=== PATIENT | female | born 1990 | race African-American/Black ===

== ENCOUNTER 2016-07-26 22:11 | Emergency (ER) | payer MEDICAID, OTHER ==
--- NOTE | 2016-07-26 22:29 | EDM.PDOC ---
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 Swabs used to remove clots without new bleeding noted. - Related Data Allergies Allergy/AdvReac Type Severity Reaction Status Date / Time No Known Allergies Allergy Verified 07/26/16 22:19 Home Meds: Home Meds . [No Known Home Meds] 06/29/14 [History] Course - Vital Signs Last Recorded V/S: Last Vital Signs Temp 36.6 C 07/27/16 01:20 Pulse 80 07/27/16 01:20 Resp 18 07/27/16 01:20 BP 118/74 07/27/16 01:20 Pulse Ox 100 07/27/16 01:20 - Orders/Labs/Meds Orders: Active Orders 24 hr Category Date Time Status OB 1st Tri Sgl 1st Gest [US] Stat Exams 07/26/16 22:25 Taken Labs: Laboratory Tests 07/26/16 07/26/16 07/26/16 Range/Units 00:04 22:40 22:40 WBC 5.82 (4.0-11.0) K/uL RBC 4.30 (4.30-5.90) M/uL Hgb 12.6 (12.0-16.0) g/dL Hct 37.9 (36.0-46.0) % MCV 88.1 (80.0-98.0) fL MCH 29.3 (27.0-32.0) pg MCHC 33.2 (31.0-37.0) g/dL RDW Std Deviation 41.0 (28.0-62.0) fl RDW Coeff of Imer 13 (11.0-15.0) % Plt Count 262 (150-400) K/uL MPV 10.00 (7.40-12.00) fL Neut % (Auto) 34.6 L (48.0-80.0) % Lymph % (Auto) 55.0 H (16.0-40.0) % [place] % (Auto) 8.2 (0.0-15.0) % Eos % (Auto) 1.9 (0.0-7.0) % Baso % (Auto) 0.3 (0.0-1.5) % Neut # (Auto) 2.0 (1.4-5.7) K/uL Lymph # (Auto) 3.2 H (0.6-2.4) K/uL [place] # (Auto) 0.5 (0.0-0.8) K/uL Eos # (Auto) 0.1 (0.0-0.7) K/uL Baso # (Auto) 0.0 (0.0-0.1) K/uL Nucleated RBC % 0.0 /100WBC Nucleated RBCs # 0 K/uL HCG, Quant 8660.6 mIU/mL Urine Color YELLOW Urine Appearance CLEAR Urine pH 6.0 (5.0-8.0) Ur Specific [place] 1.025 (1.001-1.035) Urine Protein NEGATIVE (NEGATIVE) mg/dL Urine Glucose (UA) NEGATIVE (NEGATIVE) mg/dL Urine Ketones NEGATIVE (NEGATIVE) mg/dL Urine Occult Blood LARGE H (NEGATIVE) Urine Nitrite NEGATIVE (NEGATIVE) Urine Bilirubin NEGATIVE (NEGATIVE) Urine Urobilinogen 0.2 (<2.0) EU/dL Ur Leukocyte Esterase NEGATIVE (NEGATIVE) Urine RBC 1-5 (0-2/HPF) Urine WBC 0-1 (0-5/HPF) Ur Epithelial Cells RARE (NONE-FEW) Urine Bacteria FEW (NEGATIVE) Departure - Departure Disposition: Home, Self-Care 01 Clinical Impression: Threatened Forms: ED Department Discharge - My Orders Last 24 Hours: My Active Orders 07/26/16 22:25 OB 1st Tri Sgl 1st Gest [US] Stat - Assessment/Plan Last 24 Hours: My Active Orders 07/26/16 22:25 OB 1st Tri Sgl 1st Gest [US] Stat <Lawanda Sharma - Last Filed: 07/27/16 01:50> ED HPI GENERAL MEDICAL PROBLEM - History of Present Illness INITIAL COMMENTS - FREE TEXT/NARRATIVE: HISTORY AND PHYSICAL: History of present illness: The patient is a 25 rolled female who is 2 para one with her last child eating or in the naturally February 2015 and presents with an LMP of 05/20/16 and an EGA of 9 weeks 4 days who is complaining of lower abdominal cramping and vaginal bleeding. Per the patient she is not connected with an OB MD and has not had care and she has had a very uneventful . She notes that yesterday she was having some slight spotting is very dark in color and she did not need to use a pad he was only when she was wiping. This evening she started having some cramping and started passing clots and blood and came right to the ER. She did not use a pad since this started prior to admission. She has no flank pain no urinary complaints no fever chills chest pain shortness of breath no nausea no vomiting. She has no STD history or gynecologic history of note. Review of systems: As per history of present illness and below otherwise all systems reviewed and negative. Past medical history: As per history of present illness and as reviewed below otherwise noncontributory. Surgical history: As per history of present illness and as reviewed below otherwise noncontributory. Social history: No reported history of drug or alcohol abuse. Family history: As per history of present illness and as reviewed below otherwise noncontributory. Physical exam: General: Well-developed thin female who is nontoxic and speaking clearly and easily in ED. Vital signs noted by me HEENT: Atraumatic, normocephalic, pupils reactive, negative for conjunctival pallor or scleral icterus, mucous membranes moist, throat clear, neck supple, nontender, trachea midline. Lungs: Clear to auscultation, breath sounds equal bilaterally, chest nontender. Heart: S1S2, regular, negative for clicks, rubs, or JVD. Abdomen: Soft, nondistended, nontender. Hyperactive bowel sounds, no rebound no guarding no tympany on percussion Negative for masses or hepatosplenomegaly. Negative for costovertebral tenderness. Pelvis: Stable nontender. Genitourinary: We see above addendum note. Os was fingertip but no tissue was present and no active bleeding was noted. Rectal: Deferred. Extremities: Atraumatic, negative for cords or calf pain. Neurovascular unremarkable. Neuro: Awake, alert, oriented. Cranial nerves II through XII unremarkable. Cerebellum unremarkable. Motor and sensory unremarkable throughout. Exam nonfocal. Diagnostics: CBC serum quantitative hCG pelvic ultrasound UA Patient is known all positive from February 2015 Therapeutics: Since the initial presentation that the patient has had very little vaginal bleeding. I discussed with her all testing results and followup plan to do quantitative hCG in 2 days and followup in our OB clinic with Dr. Caldera. I've advised her on reasons to return to the ED and on strict pelvic rest until she is followed up. Impression: Threatened versus complete Definitive disposition and diagnosis as appropriate pending reevaluation and review of above. Past Medical History - Past Health History Medical/Surgical History: Denies Medical/Surgical History Social & Family History - Family History Family Medical History: Noncontributory - Tobacco Use Smoking Status *Q: Never Smoker Second Hand Smoke Exposure: No - Caffeine Use Caffeine Use: Reports: None - Alcohol Use Days Per Week of Alcohol Use: 0 - Recreational Drug Use Recreational Drug Use: No ED ROS GENERAL - Review of Systems Review Of Systems: ROS reveals no pertinent complaints other than HPI. ED EXAM, GENERAL - Physical Exam Exam: See Below (See dictation) Course - Orders/Labs/Meds Labs: Laboratory Tests 07/26/16 07/26/16 07/26/16 Range/Units 00:04 22:40 22:40 WBC 5.82 (4.0-11.0) K/uL RBC 4.30 (4.30-5.90) M/uL Hgb 12.6 (12.0-16.0) g/dL Hct 37.9 (36.0-46.0) % MCV 88.1 (80.0-98.0) fL MCH 29.3 (27.0-32.0) pg MCHC 33.2 (31.0-37.0) g/dL RDW Std Deviation 41.0 (28.0-62.0) fl RDW Coeff of Imer 13 (11.0-15.0) % Plt Count 262 (150-400) K/uL MPV 10.00 (7.40-12.00) fL Neut % (Auto) 34.6 L (48.0-80.0) % Lymph % (Auto) 55.0 H (16.0-40.0) % [place] % (Auto) 8.2 (0.0-15.0) % Eos % (Auto) 1.9 (0.0-7.0) % Baso % (Auto) 0.3 (0.0-1.5) % Neut # (Auto) 2.0 (1.4-5.7) K/uL Lymph # (Auto) 3.2 H (0.6-2.4) K/uL [place] # (Auto) 0.5 (0.0-0.8) K/uL Eos # (Auto) 0.1 (0.0-0.7) K/uL Baso # (Auto) 0.0 (0.0-0.1) K/uL Nucleated RBC % 0.0 /100WBC Nucleated RBCs # 0 K/uL HCG, Quant 8660.6 mIU/mL Urine Color YELLOW Urine Appearance CLEAR Urine pH 6.0 (5.0-8.0) Ur Specific [place] 1.025 (1.001-1.035) Urine Protein NEGATIVE (NEGATIVE) mg/dL Urine Glucose (UA) NEGATIVE (NEGATIVE) mg/dL Urine Ketones NEGATIVE (NEGATIVE) mg/dL Urine Occult Blood LARGE H (NEGATIVE) Urine Nitrite NEGATIVE (NEGATIVE) Urine Bilirubin NEGATIVE (NEGATIVE) Urine Urobilinogen 0.2 (<2.0) EU/dL Ur Leukocyte Esterase NEGATIVE (NEGATIVE) Urine RBC 1-5 (0-2/HPF) Urine WBC 0-1 (0-5/HPF) Ur Epithelial Cells RARE (NONE-FEW) Urine Bacteria FEW (NEGATIVE) Departure - Departure Time of Disposition: 01:50 Condition: good
[2016-07-27 02:16] VITALS: BP 120/72
--- NOTE | 2016-07-27 12:27 | US ---
EXAM DATE: 07/26/16 PATIENT'S AGE: 25 Patient: HEIDY KHAN Facility: [place], [place] Site . Site : 1990 Study: US OB Pelvis [id number]/17/2017 12:48:38 AM Ordering Physician: Doctor Ayoub Final Report: INDICATION: r/o ectopic preg bleeding passing clots TECHNIQUE: OB ultrasound. COMPARISON: None FINDINGS: No intrauterine . Heterogeneous thickened endometrium with increased flow on color Doppler analysis. Both ovaries were visualized and normal in sonographic appearance aside from a simple appearing 1.8 cm left ovarian cyst. No significant free fluid. IMPRESSION: 1. No live intrauterine therefore an ectopic cannot be excluded. Recommend followup with serial beta HCG and pelvic ultrasound. 2. Heterogeneous thickened endometrium with hyperemia. Please correlate with beta HCG levels. Given patient`s history this could represent ongoing versus retained products of conception. Dictated by Brennan Dela Cruz MD @ 07/27/2016 12:57:56 AM Dictated by: Brennan Dela Cruz MD @ 07/27/2016 00:58:07 (Electronic Signature) Report Signed by Proxy and Original Signed Document filed in the Medical Record. [facility]
== END 2016-07-27 02:14 | disposition home or self-care (01) ==
LOC: MW.ED 22:11
DX: O20.0 Threatened abortion (principal); Z3A.08 8 weeks gestation of pregnancy
CPT/HCPCS: 36415; 76801; 76801-26; 81001; 84702; 85025; 99283; 99284-25

== ENCOUNTER → 2016-07-28 | Outpatient (CLI) | payer MEDICAID, OTHER | LOC: MW.CHOBGYN 08:15 | PROVIDERS: ATTEND Obstetrics & Gynecology | DX: O20.0 Threatened abortion (principal) | CPT/HCPCS: 36415; 84702 ==

== ENCOUNTER 2016-11-30 17:07 | Emergency (ER) | payer OTHER, SELFPAY ==
[2016-11-30] MEDS ORDERED: Sodium Chloride 0.9% 1,000 ML IV ONE (17:45)
--- NOTE | 2016-11-30 17:50 | EDM.PDOC ---
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 She proceeded to sit down and the symptoms resolved. She is currently 8 weeks which she doctors with Dr. Caldera. States she saw Dr. Caldera a few weeks ago for confirm with a transvaginal ultrasound which was normal. That time he prescribed Zofran for some nausea and vomiting. As for the last couple days she's been taking Zofran for nausea and has had decreased appetite. Currently denies any abdominal pain, vaginal bleeding, or cramping. Really asymptomatic. 3 para 1] Patient states she did have lunch. Review of Systems: As per history of present illness and below otherwise all systems reviewed and negative. Past medical history: As per history of present illness and as reviewed below otherwise noncontributory. Surgical history: As per history of present illness and as reviewed below otherwise noncontributory. Social history: No reported history of drug or alcohol abuse. Family history: As per history of present illness and as reviewed below otherwise noncontributory. Physical exam: Gen.: Nontoxic appearing 26-year-old female. Able to speak in full sentences without shortness of breath. Answers questions appropriately. Alert and oriented HEENT: Atraumatic, normocehpalic, pupils reactive, negative for conjunctival pallor or scleral icterus, mucous membranes moist, throat clear, neck supple, nontender, trachea midline. Lungs: Clear to auscultation, breath sounds equal bilaterally, chest non tender. Heart: S1S2, regular, negative for clicks, rubs, or JVD. Abdomen: Soft, nondistended, nontender. Negative for masses or hepatossplenmegaly. Negative for costovertebral tenderness. Pelvis: Stable nontender. Genitourinary: Deferred. Rectal: Deferred Extremities: Atraumatic, negative for cords or calf pain. Neurovascular unremarkable. Neuro: Awake, alert, oriented. Cranial nerves II through XII unremarkable. Cerebellum unremarkable. Motor and sensory unremarkable throughout. Exam nonfocal. Diagnostics: [CBC, CMP, EKG] Therapeutics: [IV fluids] Impression: [Near syncopal episode/blood sugars low] Plan: [Discharged home Continue to eat regular meals Follow-up with Dr. Caldera] Definitive disposition and diagnosis as appropriate pending reevaluation and review of above. Onset: Today Onset Date: 11/30/16 Onset Time: 17:00 Location: Reports: Generalized Severity: Mild - Related Data Allergies Allergy/AdvReac Type Severity Reaction Status Date / Time No Known Allergies Allergy Verified 07/26/16 22:19 Home Meds: Home Meds . [No Known Home Meds] 06/29/14 [History] Past Medical History - Past Health History Medical/Surgical History: Denies Medical/Surgical History Social & Family History - Family History Family Medical History: Noncontributory - Tobacco Use Smoking Status *Q: Never Smoker Second Hand Smoke Exposure: No - Caffeine Use Caffeine Use: Reports: None - Alcohol Use Days Per Week of Alcohol Use: 0 - Recreational Drug Use Recreational Drug Use: No ED ROS GENERAL - Review of Systems Review Of Systems: ROS reveals no pertinent complaints other than HPI. ED EXAM, GENERAL - Physical Exam Exam: See Below (A dictation) Course - Vital Signs Last Recorded V/S: Last Vital Signs Temp 36.4 C 11/30/16 18:17 Pulse 65 11/30/16 18:17 Resp 14 11/30/16 18:17 BP 107/71 11/30/16 18:17 Pulse Ox 100 11/30/16 18:17 - Orders/Labs/Meds Orders: Active Orders 24 hr Category Date Time Status Blood Glucose Check, Bedside [RC] ONETIME Care 11/30/16 18:21 Active EKG Documentation Completion [RC] STAT Care 11/30/16 17:45 Active Labs: Laboratory Tests 11/30/16 11/30/16 11/30/16 Range/Units 18:07 18:07 18:23 WBC 4.11 (4.0-11.0) K/uL RBC 4.47 (4.30-5.90) M/uL Hgb 13.4 (12.0-16.0) g/dL Hct 38.0 (36.0-46.0) % MCV 85.0 (80.0-98.0) fL MCH 30.0 (27.0-32.0) pg MCHC 35.3 (31.0-37.0) g/dL RDW Std Deviation 38.1 (28.0-62.0) fl RDW Coeff of Imer 12 (11.0-15.0) % Plt Count 236 (150-400) K/uL MPV 9.60 (7.40-12.00) fL Neut % (Auto) 50.9 (48.0-80.0) % Lymph % (Auto) 37.5 (16.0-40.0) % [place] % (Auto) 10.7 (0.0-15.0) % Eos % (Auto) 0.7 (0.0-7.0) % Baso % (Auto) 0.2 (0.0-1.5) % Neut # (Auto) 2.1 (1.4-5.7) K/uL Lymph # (Auto) 1.5 (0.6-2.4) K/uL [place] # (Auto) 0.4 (0.0-0.8) K/uL Eos # (Auto) 0.0 (0.0-0.7) K/uL Baso # (Auto) 0.0 (0.0-0.1) K/uL Nucleated RBC % 0.0 /100WBC Nucleated RBCs # 0 K/uL Sodium 133 L (136-146) mmol/L Potassium 4.6 (3.5-5.1) mmol/L Chloride 103 (98-110) mmol/L Carbon Dioxide 21 (21-31) mmol/L BUN 10 (6.0-23.0) mg/dL Creatinine 0.7 (0.6-1.5) mg/dL Est Cr Clr Drug Dosing 104.44 mL/min Estimated GFR (MDRD) > 60.0 ml/min Glucose 79 (60-110) mg/dL POC Glucose 51 L (60-110) mg/dL Calcium 9.1 (8.8-10.8) mg/dL Total Bilirubin 0.8 (0.1-1.5) mg/dL AST 11 (5-40) IU/L ALT 31 (8-54) IU/L Alkaline Phosphatase 63 (40-150) Total Protein 7.4 (6.0-8.0) g/dL Albumin 4.2 (3.5-5.0) g/dL Globulin 3.2 (2.0-3.5) g/dL Albumin/Globulin Ratio 1.3 (1.3-2.8) Meds: Medications Discontinued Medications Generic Name Dose Route Start Last Admin Trade Name Ana Lilia PRN Reason Stop Dose Admin Sodium Chloride 1,000 mls @ 999 mls/hr 11/30/16 17:45 11/30/16 17:57 Normal Saline IV 11/30/16 18:45 999 mls/hr STAT ONE Administration Departure - Departure Time of Disposition: 18:58 Disposition: Home, Self-Care 01 Condition: Good Clinical Impression: Near syncope - Discharge Information Forms: ED Department Discharge Additional Instructions: The following information is given to patients seen in the emergency department who are being discharged to home. This information is to outline your options for follow-up care. We provide all patients seen in our emergency department with a follow-up referral. The need for follow-up, as well as the timing and circumstances, are variable depending upon the specifics of your emergency department visit. If you don't have a primary care physician on staff, we will provide you with a referral. We always advise you to contact your personal physician following an emergency department visit to inform them of the circumstance of the visit and for follow-up with them and/or the need for any referrals to a consulting specialist. The emergency department will also refer you to a specialist when appropriate. This referral assures that you have the opportunity for followup care with a specialist. All of these measure are taken in an effort to provide you with optimal care, which includes your followup. Under all circumstances we always encourage you to contact your private physician who remains a resource for coordinating your care. When calling for followup care, please make the office aware that this follow-up is from your recent emergency room visit. If for any reason you are refused follow-up, please contact the [facility] emergency department at and asked to speak to the emergency department charge nurse. Follow-up with your primary care provider Heat a snack every 2 hours - My Orders Last 24 Hours: My Active Orders 11/30/16 17:45 EKG Documentation Completion [RC] STAT 11/30/16 18:21 Blood Glucose Check, Bedside [RC] ONETIME - Assessment/Plan Last 24 Hours: My Active Orders 11/30/16 17:45 EKG Documentation Completion [RC] STAT 11/30/16 18:21 Blood Glucose Check, Bedside [RC] ONETIME
[2016-11-30 18:44] LABS: CHLORIDE,CL 103 mmol/L (98-110); SODIUM,NA 133 mmol/L (136-146)
[2016-11-30 19:28] VITALS: BP 107/62
== END 2016-11-30 19:07 | disposition home or self-care (01) ==
LOC: MW.ED 17:07
DX: O99.89 Other specified diseases and conditions complicating pregnancy, childbirth and the puerperium (principal); R55 Syncope and collapse; Z3A.08 8 weeks gestation of pregnancy
CPT/HCPCS: 36415; 80053; 82962; 85025; 93005; 96360; 99284; J7040; 99283

== ENCOUNTER 2017-03-06 20:09 | Emergency (ER) | payer SELFPAY | END 2017-03-06 20:28 | LOC: MW.ED 20:09 | DX: Z53.21 Procedure and treatment not carried out due to patient leaving prior to being seen by health care provider (principal) ==

== ENCOUNTER 2017-03-09 10:07 | Observation (INO) | payer MEDICAID, OTHER ==
[2017-03-09] MEDS ORDERED: Morphine 2 MG/ML Syringe IVPUSH ONE (10:41)
[2017-03-09] MEDS ORDERED: Morphine 2 MG/ML Syringe ONE (10:43)
[2017-03-09] MEDS ORDERED: Lactated Ringers 1,000 ML IV SCH (10:47)
[2017-03-09] MEDS ORDERED: Oxytocin/0.9 % Sodium Chloride 30 UNIT/500 ML BAG ONE (11:07)
[2017-03-09] MEDS ORDERED: Oxytocin/0.9 % Sodium Chloride 30 UNIT/500 ML BAG IV ONE (11:26)
[2017-03-09] MEDS ORDERED: oxyCODONE 5 MG Tab PO PRN (11:36)
[2017-03-09] MEDS ORDERED: Docusate Sodium 100 MG Cap PO PRN (11:36)
[2017-03-09] MEDS ORDERED: Acetaminophen 500 MG Tab PO PRN ×2 (11:36)
[2017-03-09] MEDS ORDERED: Ibuprofen 400 MG Tab PO PRN (11:36)
[2017-03-09] MEDS ORDERED: Lanolin 100% Cream 7 GM Tube TOP PRN (11:36)
[2017-03-09] MEDS ORDERED: Witch Hazel Medicated Pads 40/Jar TOP PRN (11:36)
[2017-03-09] MEDS ORDERED: Benzocaine/Menthol 20%-0.5% Spray 78 GM Cannister TOP PRN (11:36)
[2017-03-09] MEDS ORDERED: Bisacodyl 10 MG Supp RECTAL PRN (11:36)
[2017-03-09] MEDS ORDERED: Ibuprofen 800 MG Tab PO PRN (11:36)
--- NOTE | 2017-03-09 11:46 | PCM.LDHP ---
L&D History of Present Illness - General Date of Service: 03/09/17 Admit Problem/Dx: Patient Status Order with Admit Dx/Problem 03/09/17 10:37 Patient Status [ADT] Routine 03/09/17 11:36 Patient Status [ADT] Routine Admission Diagnosis/Problem Admission Diagnosis/Problem -related examination Source of Information: Patient History Limitations: Reports: No Limitations - History of Present Illness Improves with: Reports: None Worsens with: Reports: None Associated Symptoms: Reports: N - Related Data Allergies/Adverse Reactions: Allergies Allergy/AdvReac Type Severity Reaction Status Date / Time No Known Allergies Allergy Verified 03/06/17 22:02 Home Medications: Home Meds . [No Known Home Meds] 06/29/14 [History] Past Medical History - Past Health History Medical/Surgical History: Denies Medical/Surgical History Social & Family History - Family History Family Medical History: Noncontributory - Tobacco Use Smoking Status *Q: Never Smoker Second Hand Smoke Exposure: No - Caffeine Use Caffeine Use: Reports: None - Alcohol Use Days Per Week of Alcohol Use: 0 - Recreational Drug Use Recreational Drug Use: No H&P Review of Systems - Review of Systems: Review Of Systems: See Below General: Reports: No Symptoms HEENT: Reports: No Symptoms Pulmonary: Reports: No Symptoms Cardiovascular: Reports: No Symptoms Gastrointestinal: Reports: No Symptoms Genitourinary: Reports: No Symptoms Musculoskeletal: Reports: No Symptoms Skin: Reports: No Symptoms Psychiatric: Reports: No Symptoms Neurological: Reports: No Symptoms Hematologic/Lymphatic: Reports: No Symptoms Immunologic: Reports: No Symptoms L&D Exam - Exam Exam: See Below - Vital Signs Weight: 60.328 kg - OB Specific Fundal Height In cm: 22 Contraction Intensity: Moderate to Strong Movement: Not Appreciated Heart Tones: Not [place] Presentation: Vertex - Scott Score Scott Score Cervix Position: Anterior Scott Score Consistency: Soft Scott Score Effacement: >80% Scott Score Dilation: > 5 cm Scott Score 's Station: +1, +2 Scott Score Total: 13 - Exam General: Alert, Oriented HEENT: PERRLA, Conjunctiva Clear, EACs Clear, EOMI, Hearing Intact, Mucosa Moist & [place], Nares Patent, Normal Nasal Septum, Posterior Pharynx Clear, TMs Clear Neck: Supple, Trachea Midline Lungs: Clear to Auscultation, Normal Respiratory Effort Cardiovascular: Regular Rate, Regular Rhythm GI/Abdominal Exam: Normal Bowel Sounds, Soft, Non-Tender, No Organomegaly, No Distention, No Abnormal Bruit, No Mass, Pelvis Stable, Tender Rectal Exam: Normal Exam, Normal Rectal Tone Genitourinary: Normal external exam, Normal bimanual exam, Normal speculum exam Back Exam: Normal Inspection, Full Range of Motion Extremities: Normal Inspection, Normal Range of Motion, Non-Tender, No Pedal Edema, Normal Capillary Refill Skin: Warm, Dry, Intact Neurological: Cranial Nerves Intact, Reflexes Equal Bilateral Psychiatric: Alert, Normal Affect, Normal Mood - Patient Data Lab Results Last 24 hrs: Laboratory Results - last 24 hr 03/09/17 03/09/17 Range/Units 10:26 10:30 WBC 10.60 (4.0-11.0) K/uL RBC 3.04 L (4.30-5.90) M/uL Hgb 9.0 L (12.0-16.0) g/dL Hct 27.3 L (36.0-46.0) % MCV 89.8 (80.0-98.0) fL MCH 29.6 (27.0-32.0) pg MCHC 33.0 (31.0-37.0) g/dL RDW Std Deviation 48.1 (28.0-62.0) fl RDW Coeff of Imer 15 (11.0-15.0) % Plt Count 251 (150-400) K/uL MPV 9.20 (7.40-12.00) fL Add Manual Diff YES Neutrophils % (Manual) 69 (48.0-80.0) % Band Neutrophils % 11 % Lymphocytes % (Manual) 16 (16.0-40.0) % Monocytes % (Manual) 3 (0.0-15.0) % Eosinophils % (Manual) 1 (0.0-7.0) % Nucleated RBC % 0.0 /100WBC Absolute Seg Neuts 7.3 H (1.4-5.7) Band Neutrophils # 1.2 Lymphocytes # (Manual) 1.7 (0.6-2.4) Monocytes # (Manual) 0.3 (0.0-0.8) Eosinophils # (Manual) 0.1 (0.0-0.7) Nucleated RBCs # 0 K/uL Membrane Rupture NEGATIVE Result Diagrams: 03/09/17 10:30 Problem List Initiated/Reviewed/Updated: Yes Orders Last 24hrs: Active Orders 24 hr Category Date Time Status Patient Status [ADT] Routine ADT 03/09/17 11:36 Ordered Non Stress Test [RC] PER UNIT ROUTINE Care 03/09/17 10:37 Active May Shower [RC] ASDIRECTED Care 03/09/17 11:36 Ordered Up ad Kassidy [RC] ASDIRECTED Care 03/09/17 10:37 Active Up ad Kassidy [RC] ASDIRECTED Care 03/09/17 11:36 Ordered Vaginal Exam [RC] Click to Edit Care 03/09/17 10:37 Active Vital Signs [RC] PER UNIT ROUTINE Care 03/09/17 10:37 Active Vital Signs [RC] PER UNIT ROUTINE Care 03/09/17 11:36 Ordered HEMOGLOBIN/HEMATOCRIT,HH [HEME] Timed Lab 03/10/17 05:11 Ordered Acetaminophen [Tylenol Extra Strength] Med 03/09/17 11:36 Ordered 1,000 mg PO Q4H PRN Acetaminophen [Tylenol Extra Strength] Med 03/09/17 11:36 Ordered 500 mg PO Q4H PRN Benzocaine/Menthol [Dermoplast Pain Relief 20%-0.5% Med 03/09/17 11:36 Ordered Makoti] 78 gm TOP ASDIRECTED PRN Bisacodyl [Dulcolax] Med 03/09/17 11:36 Ordered 10 mg RECTAL .ONCE PRN Docusate Sodium [Colace] Med 03/09/17 11:36 Ordered 100 mg PO BID PRN Ibuprofen [Motrin] Med 03/09/17 11:36 Ordered 400 mg PO Q4H PRN Ibuprofen [Motrin] Med 03/09/17 11:36 Ordered 800 mg PO Q6H PRN Lanolin [Lansinoh HPA] Med 03/09/17 11:36 Ordered See Dose Instructions TOP ASDIRECTED PRN Witch Radha [Tucks] Med 03/09/17 11:36 Ordered 1 pad TOP ASDIRECTED PRN oxyCODONE Med 03/09/17 11:36 Ordered 5 mg PO Q2H PRN Assess Lochia [WOMSER] Per Unit Routine Oth 03/09/17 11:36 Ordered Assess Uterine Involution [WOMSER] Per Unit Routine Oth 03/09/17 11:36 Ordered Peripheral IV Discontinue [OM.PC] Routine Oth 03/09/17 11:36 Ordered Resuscitation Status Routine Resus Stat 03/09/17 10:37 Ordered Medication Orders Acetaminophen (Tylenol Extra Strength) 500 mg PO Q4H PRN PRN Reason: Pain Acetaminophen (Tylenol Extra Strength) 1,000 mg PO Q4H PRN PRN Reason: Pain Benzocaine/Menthol (Dermoplast Pain Relief 20%-0.5% Mak[place]) 78 gm TOP ASDIRECTED PRN PRN Reason: Perineal Comfort Measure Bisacodyl (Dulcolax) 10 mg RECTAL .ONCE PRN PRN Reason: Constipation Docusate Sodium (Colace) 100 mg PO BID PRN PRN Reason: Constipation Emollient Ointment (Lansinoh Hpa) 0 gm TOP ASDIRECTED PRN PRN Reason: Sore Nipples Ibuprofen (Motrin) 400 mg PO Q4H PRN PRN Reason: Pain Ibuprofen (Motrin) 800 mg PO Q6H PRN PRN Reason: Pain Oxycodone HCl (Oxycodone) 5 mg PO Q2H PRN PRN Reason: Pain Witch Radha (Tucks) 1 pad TOP ASDIRECTED PRN PRN Reason: comfort care Assessment/Plan Comment:: 26 years old patient primigravida she is 22+3 she was seen yesterday in labor and delivery complaining of vaginal discharge rupture of the membrane ruled out yesterday however the patient is came today complaining of contraction and bleeding and the patient is continued to have contraction and the bleeding would admit this patient to the hospital we would do a test to rule out rupture membrane and we evaluated the patient for possibility of septic start her on antibiotic as soon as possible and we will manage and evaluate accordingly
[2017-03-09] MEDS ORDERED: Ampicillin 2 GM in Sodium Chloride 0.9% 100 ML IV ONE (12:12)
--- NOTE | 2017-03-09 22:06 | OR ---
SURGEON: Edgar Caldera MD DATE OF PROCEDURE: DELIVERY NOTE This is a 26-year-old patient. She is 22-1/2 weeks. She is having bleeding and spotting in the last 2 days with a questionable rupture of the membrane. The patient presented to Labor and Delivery in active labor and she was almost completely dilated. She is having and she had a spontaneous vaginal delivery of 22 weeks fetus, did not survive, and there is no movement and no cardiac activity when the baby is delivered. Then, during the attempt of delivering the placenta, the placenta was retained, so I did a speculum examination and I was able to use a ring forceps with gentle pulling and teasing. The placenta delivered completely without any problem and I sent it for histopathology. Pitocin and antibiotics were started on the patient. We believe the patient had copious amount of bleeding. We will check her H and H and if she require blood transfusion, we will transfuse the patient as needed. Estimated blood loss in this delivery about 500 mL. There was no other complication. PRIMARY SURGEON: SECONDARY SURGEON: HEALTH CARE FACILITIES INSPECTOR: REASON HEALTH CARE FACILITIES INSPECTOR WAS NECESSARY: ROLE OF HEALTH CARE FACILITIES INSPECTOR: JUAN MNOROE /[id number]
--- NOTE | 2017-03-10 08:54 | PCM.PNPP ---
- General Info Date of Service: 03/10/17 Functional Status: Reports: Pain Controlled - Review of Systems General: Reports: No Symptoms HEENT: Reports: No Symptoms Pulmonary: Reports: No Symptoms Cardiovascular: Reports: No Symptoms Gastrointestinal: Reports: No Symptoms Genitourinary: Reports: No Symptoms Musculoskeletal: Reports: No Symptoms Skin: Reports: No Symptoms Neurological: Reports: No Symptoms Psychiatric: Reports: No Symptoms - General Info Date of Service: 03/10/17 - Patient Data Vital Signs - Most Recent: Last Vital Signs Temp 37.1 C 03/10/17 04:00 Pulse 87 03/10/17 04:00 Resp 15 03/10/17 04:00 BP 104/65 03/10/17 04:00 Pulse Ox 100 03/10/17 04:00 Weight - Most Recent: 60.328 kg I&O - Last 24 Hours: Intake & Output 03/09/17 03/10/17 03/10/17 22:59 06:59 14:59 Intake Total 1012 Balance 1012 Lab Results - Last 24 Hours: Laboratory Results - last 24 hr 03/09/17 03/09/17 03/09/17 Range/Units 10:26 10:30 10:50 WBC 10.60 (4.0-11.0) K/uL RBC 3.04 L (4.30-5.90) M/uL Hgb 9.0 L (12.0-16.0) g/dL Hct 27.3 L (36.0-46.0) % MCV 89.8 (80.0-98.0) fL MCH 29.6 (27.0-32.0) pg MCHC 33.0 (31.0-37.0) g/dL RDW Std Deviation 48.1 (28.0-62.0) fl RDW Coeff of Imer 15 (11.0-15.0) % Plt Count 251 (150-400) K/uL MPV 9.20 (7.40-12.00) fL Add Manual Diff YES Neutrophils % (Manual) 69 (48.0-80.0) % Band Neutrophils % 11 % Lymphocytes % (Manual) 16 (16.0-40.0) % Monocytes % (Manual) 3 (0.0-15.0) % Eosinophils % (Manual) 1 (0.0-7.0) % Nucleated RBC % 0.0 /100WBC Absolute Seg Neuts 7.3 H (1.4-5.7) Band Neutrophils # 1.2 Lymphocytes # (Manual) 1.7 (0.6-2.4) Monocytes # (Manual) 0.3 (0.0-0.8) Eosinophils # (Manual) 0.1 (0.0-0.7) Nucleated RBCs # 0 K/uL POC Glucose (60-110) mg/dL Membrane Rupture NEGATIVE Blood Type O POSITIVE Antibody Screen NEGATIVE Crossmatch See Detail 03/09/17 03/09/17 03/10/17 Range/Units 13:40 13:51 05:24 WBC (4.0-11.0) K/uL RBC (4.30-5.90) M/uL Hgb 6.6 L 8.0 L (12.0-16.0) g/dL Hct 20.0 L 23.0 L (36.0-46.0) % MCV (80.0-98.0) fL MCH (27.0-32.0) pg MCHC (31.0-37.0) g/dL RDW Std Deviation (28.0-62.0) fl RDW Coeff of Imer (11.0-15.0) % Plt Count (150-400) K/uL MPV (7.40-12.00) fL Add Manual Diff Neutrophils % (Manual) (48.0-80.0) % Band Neutrophils % % Lymphocytes % (Manual) (16.0-40.0) % Monocytes % (Manual) (0.0-15.0) % Eosinophils % (Manual) (0.0-7.0) % Nucleated RBC % /100WBC Absolute Seg Neuts (1.4-5.7) Band Neutrophils # Lymphocytes # (Manual) (0.6-2.4) Monocytes # (Manual) (0.0-0.8) Eosinophils # (Manual) (0.0-0.7) Nucleated RBCs # K/uL POC Glucose 139 H (60-110) mg/dL Membrane Rupture Blood Type Antibody Screen Crossmatch Med Orders - Current: Current Medications Acetaminophen (Tylenol Extra Strength) 500 mg PO Q4H PRN PRN Reason: Pain Acetaminophen (Tylenol Extra Strength) 1,000 mg PO Q4H PRN PRN Reason: Pain Last Admin: 03/09/17 12:37 Dose: 1,000 mg Benzocaine/Menthol (Dermoplast Pain Relief 20%-0.5% [place]) 78 gm TOP ASDIRECTED PRN PRN Reason: Perineal Comfort Measure Bisacodyl (Dulcolax) 10 mg RECTAL .ONCE PRN PRN Reason: Constipation Docusate Sodium (Colace) 100 mg PO BID PRN PRN Reason: Constipation Emollient Ointment (Lansinoh Hpa) 0 gm TOP ASDIRECTED PRN PRN Reason: Sore Nipples Lactated Ringer's (Ringers, Lactated) 1,000 mls @ 500 mls/hr IV ASDIRECTED ROSMERY Last Admin: 03/09/17 10:40 Dose: 500 mls/hr Ibuprofen (Motrin) 400 mg PO Q4H PRN PRN Reason: Pain Ibuprofen (Motrin) 800 mg PO Q6H PRN PRN Reason: Pain Oxycodone HCl (Oxycodone) 5 mg PO Q2H PRN PRN Reason: Pain Witch Radha (Tucks) 1 pad TOP ASDIRECTED PRN PRN Reason: comfort care Discontinued Medications Oxytocin/Sodium Chloride (Oxytocin 30 Unit/500 Ml-Ns) Confirm Administered Dose 30 unit in 500 mls @ as directed .ROUTE .STK-MED ONE Stop: 03/09/17 11:08 Ampicillin Sodium 2 gm/ Sodium (Chloride) 100 mls @ 200 mls/hr IV ONETIME ONE Stop: 03/09/17 12:41 Last Admin: 03/09/17 12:47 Dose: 200 mls/hr Oxytocin/Sodium Chloride (Oxytocin 30 Unit/500 Ml-Ns) 30 unit in 500 mls @ 500 mls/hr IV ONETIME ONE PRN Reason: 500 MUNITS/MIN Stop: 03/09/17 12:25 Last Admin: 03/09/17 11:26 Dose: 500 munits/min, 500 mls/hr Morphine Sulfate (Morphine) 2 mg IVPUSH ONETIME ONE Stop: 03/09/17 10:42 Last Admin: 03/09/17 10:45 Dose: 2 mg Morphine Sulfate (Morphine) Confirm Administered Dose 2 mg .ROUTE .STK-MED ONE Stop: 03/09/17 10:44 - Infant Interaction Infant Disposition, : Not Applicable Support Person: , Friend - Recovery Exam Fundal Level: Unable to Assess Lochia Amount: Small Lochia Color: Rubra/Red Perineum Description: Intact, Minimal Bruising/Swelling Urinary Elimination: Voided - Exam General: Alert, Oriented HEENT: Pupils Equal Neck: Supple Lungs: Clear to Auscultation, Normal Respiratory Effort Cardiovascular: Regular Rate, Regular Rhythm GI/Abdominal Exam: Normal Bowel Sounds, Soft, Non-Tender, No Organomegaly, No Distention, No Abnormal Bruit, No Mass, Pelvis Stable Extremities: Normal Inspection, Normal Range of Motion, Non-Tender, No Pedal Edema, Normal Capillary Refill Skin: Warm, Dry, Intact Wound/Incisions: Healing Well Neurological: No New Focal Deficit Psy/Mental Status: Alert, Normal Affect, Normal Mood - Problem List Review Problem List Initiated/Reviewed/Updated: Yes - My Orders Last 24 Hours: My Active Orders 03/09/17 10:37 Up ad Kassidy [RC] ASDIRECTED Vital Signs [RC] PER UNIT ROUTINE Resuscitation Status Routine 03/09/17 10:47 Lactated Ringers [Ringers, Lactated] 1,000 ml IV ASDIRECTED 03/09/17 11:36 Patient Status [ADT] Routine May Shower [RC] ASDIRECTED Acetaminophen [Tylenol Extra Strength] 1,000 mg PO Q4H PRN Acetaminophen [Tylenol Extra Strength] 500 mg PO Q4H PRN Benzocaine/Menthol [Dermoplast Pain Relief 20%-0.5% [place]] 78 gm TOP ASDIRECTED PRN Bisacodyl [Dulcolax] 10 mg RECTAL .ONCE PRN Docusate Sodium [Colace] 100 mg PO BID PRN Ibuprofen [Motrin] 400 mg PO Q4H PRN Ibuprofen [Motrin] 800 mg PO Q6H PRN Lanolin [Lansinoh HPA] See Dose Instructions TOP ASDIRECTED PRN Witch Radha [Tucks] 1 pad TOP ASDIRECTED PRN oxyCODONE 5 mg PO Q2H PRN Assess Lochia [WOMSER] Per Unit Routine Assess Uterine Involution [WOMSER] Per Unit Routine Peripheral IV Discontinue [OM.PC] Routine 03/09/17 14:29 Transfuse Red Blood Cells [COMM] Routine 03/09/17 14:30 Verify Patient Consent Obtain [RC] ASDIRECTED 03/09/17 Lunch Regular Diet [DIET] - Plan Plan:: 26 years old patient primigravida she is 22+3 she was seen yesterday in labor and delivery complaining of vaginal discharge rupture of the membrane ruled out yesterday however the patient is came today complaining of contraction and bleeding and the patient is continued to have contraction and the bleeding would admit this patient to the hospital we would do a test to rule out rupture membrane and we evaluated the patient for possibility of septic start her on antibiotic as soon as possible and we will manage and evaluate accordingly
[2017-03-10 09:16] VITALS: BP 107/66
== END 2017-03-10 09:50 | disposition home or self-care (01) ==
LOC: MW.OBCHECK 10:07 → MW.OB 10:11 → MW.OBCHECK 14:28
PROVIDERS: ADMIT Obstetrics & Gynecology; ATTEND Obstetrics & Gynecology
DX: O60.12X0 Preterm labor second trimester with preterm delivery second trimester, not applicable or unspecified (principal); Z3A.22 22 weeks gestation of pregnancy; Z37.1 Single stillbirth
CPT/HCPCS: 36415; 36430; 59409; 82962; 84112; 85014; 85018; 85025; 86850; 86900; 86901; 86920; 86921; 86922; 88305; 96374; 96375; A9270; G0378; J0290; J2270; J2590; J7030; J7120; P9016

== ENCOUNTER 2017-03-23 12:33 | Observation (INO) | payer MEDICAID, OTHER ==
[2017-03-23] MEDS ORDERED: Sodium Chloride 0.9% 10 ML Syringe FLUSH PRN (12:35)
[2017-03-23] MEDS ORDERED: Sodium Chloride 0.9% 2.5 ML Syringe FLUSH PRN (12:35)
--- NOTE | 2017-03-23 13:24 | EDM.PDOC ---
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 Patient has been having heavy vaginal bleeding for the past 4 days. She delivered a stillbirth vaginally 2 weeks ago was scheduled to see Dr. Caldera 2 days. EMS states patient since was severely weak, tachycardic and hypotensive with active vaginal bleeding. Review of systems: As per history of present illness and below otherwise all systems reviewed and negative. Past medical history: As per history of present illness and as reviewed below otherwise noncontributory. Surgical history: As per history of present illness and as reviewed below otherwise noncontributory. Social history: No reported history of drug or alcohol abuse. Family history: As per history of present illness and as reviewed below otherwise noncontributory. Physical exam: General: Well developed, pale, shivering, moaning HEENT: Atraumatic, normocephalic, pupils reactive, negative for conjunctival pallor or scleral icterus, mucous membranes moist, throat clear, neck supple, nontender, trachea midline. Lungs: Clear to auscultation, breath sounds equal bilaterally, chest nontender. Heart: S1S2, regular, negative for clicks, rubs, or JVD. Abdomen: Soft, nondistended, nontender. Negative for masses or hepatosplenomegaly. Negative for costovertebral tenderness. Pelvis: Vaginal fault filled with clots active bleeding around them. Suction was used and ring forceps to remove all the clots os was visualized and there is a golf ball size of fan tissue stuck in the os with bleeding around it. Genitourinary: Deferred. Rectal: Deferred. Extremities: Atraumatic, negative for cords or calf pain. Neurovascular unremarkable. Neuro: Awake, alert, oriented. Cranial nerves II through XII unremarkable. Cerebellum unremarkable. Motor and sensory unremarkable throughout. Exam nonfocal. Diagnostics: []Labs ordered H&H 724. Heart rate 140s blood pressure 100/60 Therapeutics: []Patient given a liter of fluid and 2 units of O-neg blood ordered immediately upon arrival. Impression: []Retained products of misconception with uncontrolled vaginal bleeding Plan: []Dr. Caldera was consulted and is taking in this patient to the OR for D&C. Definitive disposition and diagnosis as appropriate pending reevaluation and review of above. Pelvic Pain Score (Numeric/FACES): 8 - Related Data Allergies Allergy/AdvReac Type Severity Reaction Status Date / Time No Known Allergies Allergy Verified 03/23/17 13:01 Home Meds: Home Meds . 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 Social & Family History - Family History Family Medical History: Noncontributory Cardiac: Reports: Hypertension Endocrine/Metabolic: Reports: Diabetes, type II - Tobacco Use Smoking Status *Q: Unknown Ever Smoked Second Hand Smoke Exposure: No - Caffeine Use Caffeine Use: Reports: Other - Alcohol Use Days Per Week of Alcohol Use: 0 - Recreational Drug Use Recreational Drug Use: No ED ROS GENERAL - Review of Systems Review Of Systems: See Below (See history of present illness) ED EXAM - Physical Exam Exam: See Below (See history of present illness) Course - Vital Signs Last Recorded V/S: Last Vital Signs Temp 99.0 F 03/23/17 12:40 Pulse 112 H 03/23/17 12:40 Resp 20 03/23/17 12:40 BP 117/60 03/23/17 12:40 Pulse Ox 100 03/23/17 12:40 - Orders/Labs/Meds Orders: Active Orders 24 hr Category Date Time Status Notify Provider Consults [RC] ASDIRECTED Care 03/23/17 13:48 Ordered Consult to Physician [CONS] Stat Cons 03/23/17 13:46 Ordered RED BLOOD CELLS LP [BBK] Stat Lab 03/23/17 12:49 Results Sodium Chloride 0.9% [Saline Flush] Med 03/23/17 12:35 Active 10 ml FLUSH ASDIRECTED PRN Sodium Chloride 0.9% [Saline Flush] Med 03/23/17 12:35 Active 2.5 ml FLUSH ASDIRECTED PRN cefTRIAXone [Rocephin in Dextrose,Iso-Osm 1 GM/50 ML] 1 Med 03/23/17 13:34 Active gm Premix Bag 1 bag IV ONETIME Saline Lock Insert [OM.PC] Stat Oth 03/23/17 12:35 Ordered Transfuse Red Blood Cells [COMM] Stat Oth 03/23/17 13:05 Ordered Medication Orders Ceftriaxone Sodium/Dextrose 1 (gm/ Premix) 50 mls @ 100 mls/hr IV ONETIME ONE Stop: 03/23/17 14:03 Sodium Chloride (Saline Flush) 10 ml FLUSH ASDIRECTED PRN PRN Reason: Keep Vein Open Last Admin: 03/23/17 13:34 Dose: 10 ml Sodium Chloride (Saline Flush) 2.5 ml FLUSH ASDIRECTED PRN PRN Reason: Keep Vein Open Last Admin: 03/23/17 13:34 Dose: 2.5 ml Labs: Laboratory Tests 03/23/17 03/23/17 03/23/17 Range/Units 12:49 12:49 12:49 WBC 10.32 (4.0-11.0) K/uL RBC 2.56 L (4.30-5.90) M/uL Hgb 7.7 L (12.0-16.0) g/dL Hct 24.0 L (36.0-46.0) % MCV 93.8 (80.0-98.0) fL MCH 30.1 (27.0-32.0) pg MCHC 32.1 (31.0-37.0) g/dL RDW Std Deviation 48.7 (28.0-62.0) fl RDW Coeff of Imer 14 (11.0-15.0) % Plt Count 443 H (150-400) K/uL MPV 9.30 (7.40-12.00) fL Neut % (Auto) 73.5 (48.0-80.0) % Lymph % (Auto) 21.3 (16.0-40.0) % [place] % (Auto) 4.9 (0.0-15.0) % Eos % (Auto) 0.0 (0.0-7.0) % Baso % (Auto) 0.3 (0.0-1.5) % Neut # (Auto) 7.6 H (1.4-5.7) K/uL Lymph # (Auto) 2.2 (0.6-2.4) K/uL [place] # (Auto) 0.5 (0.0-0.8) K/uL Eos # (Auto) 0.0 (0.0-0.7) K/uL Baso # (Auto) 0.0 (0.0-0.1) K/uL Nucleated RBC % 0.0 /100WBC Nucleated RBCs # 0 K/uL Sodium 136 (136-146) mmol/L Potassium 3.7 (3.5-5.1) mmol/L Chloride 104 (98-110) mmol/L Carbon Dioxide 21 (21-31) mmol/L BUN 8 (6.0-23.0) mg/dL Creatinine 0.7 (0.6-1.5) mg/dL Est Cr Clr Drug Dosing 102.00 mL/min Estimated GFR (MDRD) > 60.0 ml/min Glucose 116 H (60-110) mg/dL Calcium 8.4 L (8.8-10.8) mg/dL Total Bilirubin 0.6 (0.1-1.5) mg/dL AST 7 (5-40) IU/L ALT 15 (8-54) IU/L Alkaline Phosphatase 81 (40-150) Total Protein 6.7 (6.0-8.0) g/dL Albumin 3.2 L (3.5-5.0) g/dL Globulin 3.5 (2.0-3.5) g/dL Albumin/Globulin Ratio 0.9 L (1.3-2.8) HCG, Quant 691.5 mIU/mL Blood Type O POSITIVE Antibody Screen NEGATIVE Crossmatch 03/23/17 Range/Units 12:49 WBC (4.0-11.0) K/uL RBC (4.30-5.90) M/uL Hgb (12.0-16.0) g/dL Hct (36.0-46.0) % MCV (80.0-98.0) fL MCH (27.0-32.0) pg MCHC (31.0-37.0) g/dL RDW Std Deviation (28.0-62.0) fl RDW Coeff of Imer (11.0-15.0) % Plt Count (150-400) K/uL MPV (7.40-12.00) fL Neut % (Auto) (48.0-80.0) % Lymph % (Auto) (16.0-40.0) % [place] % (Auto) (0.0-15.0) % Eos % (Auto) (0.0-7.0) % Baso % (Auto) (0.0-1.5) % Neut # (Auto) (1.4-5.7) K/uL Lymph # (Auto) (0.6-2.4) K/uL [place] # (Auto) (0.0-0.8) K/uL Eos # (Auto) (0.0-0.7) K/uL Baso # (Auto) (0.0-0.1) K/uL Nucleated RBC % /100WBC Nucleated RBCs # K/uL Sodium (136-146) mmol/L Potassium (3.5-5.1) mmol/L Chloride (98-110) mmol/L Carbon Dioxide (21-31) mmol/L BUN (6.0-23.0) mg/dL Creatinine (0.6-1.5) mg/dL Est Cr Clr Drug Dosing mL/min Estimated GFR (MDRD) ml/min Glucose (60-110) mg/dL Calcium (8.8-10.8) mg/dL Total Bilirubin (0.1-1.5) mg/dL AST (5-40) IU/L ALT (8-54) IU/L Alkaline Phosphatase (40-150) Total Protein (6.0-8.0) g/dL Albumin (3.5-5.0) g/dL Globulin (2.0-3.5) g/dL Albumin/Globulin Ratio (1.3-2.8) HCG, Quant mIU/mL Blood Type Antibody Screen Crossmatch See Detail Meds: Medications Generic Name Dose Route Start Last Admin Trade Name Freq PRN Reason Stop Dose Admin Ceftriaxone Sodium/Dextrose 1 50 mls @ 100 mls/hr 03/23/17 13:34 gm/ Premix IV 03/23/17 14:03 ONETIME ONE Sodium Chloride 10 ml 03/23/17 12:35 03/23/17 13:34 Saline Flush FLUSH 10 ml ASDIRECTED PRN Administration Keep Vein Open Sodium Chloride 2.5 ml 03/23/17 12:35 03/23/17 13:34 Saline Flush FLUSH 2.5 ml ASDIRECTED PRN Administration Keep Vein Open Discontinued Medications Generic Name Dose Route Start Last Admin Trade Name Danieq PRN Reason Stop Dose Admin Diphenhydramine HCl Confirm 03/23/17 13:47 Benadryl Administered 03/23/17 13:48 Dose 50 mg .ROUTE .STK-MED ONE Fentanyl Confirm 03/23/17 12:47 03/23/17 13:40 Sublimaze Administered 03/23/17 12:48 Not Given Dose 100 mcg .ROUTE .STK-MED ONE Fentanyl 100 mcg 03/23/17 13:36 03/23/17 13:40 Sublimaze IVPUSH 03/23/17 13:37 100 mcg ONETIME ONE Administration Ketamine HCl Confirm 03/23/17 13:45 Ketalar Administered 03/23/17 13:46 Dose 500 mg .ROUTE .STK-MED ONE Lidocaine Confirm 03/23/17 13:47 Xylocaine-Mpf 2% Administered 03/23/17 13:48 Dose 5 ml .ROUTE .STK-MED ONE Ondansetron HCl Confirm 03/23/17 13:47 Zofran Administered 03/23/17 13:48 Dose 4 mg .ROUTE .STK-MED ONE Propofol Confirm 03/23/17 13:45 Diprivan 20 Ml Administered 03/23/17 13:46 Dose 200 mg .ROUTE .STK-MED ONE Succinylcholine Chloride Confirm 03/23/17 13:47 Succinylcholine In Ns Pf Administered 03/23/17 13:48 Dose 200 mg .ROUTE .STK-MED ONE Departure - Departure Time of Disposition: 13:58 Disposition: Home, Self-Care 01 Condition: Good Clinical Impression: Retained products of conception with hemorrhage - Discharge Information - My Orders Last 24 Hours: My Active Orders 03/23/17 12:35 Sodium Chloride 0.9% [Saline Flush] 10 ml FLUSH ASDIRECTED PRN Sodium Chloride 0.9% [Saline Flush] 2.5 ml FLUSH ASDIRECTED PRN Saline Lock Insert [OM.PC] Stat 03/23/17 12:49 RED BLOOD CELLS LP [BBK] Stat 03/23/17 13:05 Transfuse Red Blood Cells [COMM] Stat 03/23/17 13:34 cefTRIAXone [Rocephin in Dextrose,Iso-Osm 1 GM/50 ML] 1 gm Premix Bag 1 bag IV ONETIME 03/23/17 13:46 Consult to Physician [CONS] Stat 03/23/17 13:48 Notify Provider Consults [RC] ASDIRECTED - Assessment/Plan Last 24 Hours: My Active Orders 03/23/17 12:35 Sodium Chloride 0.9% [Saline Flush] 10 ml FLUSH ASDIRECTED PRN Sodium Chloride 0.9% [Saline Flush] 2.5 ml FLUSH ASDIRECTED PRN Saline Lock Insert [OM.PC] Stat 03/23/17 12:49 RED BLOOD CELLS LP [BBK] Stat 03/23/17 13:05 Transfuse Red Blood Cells [COMM] Stat 03/23/17 13:34 cefTRIAXone [Rocephin in Dextrose,Iso-Osm 1 GM/50 ML] 1 gm Premix Bag 1 bag IV ONETIME 03/23/17 13:46 Consult to Physician [CONS] Stat 03/23/17 13:48 Notify Provider Consults [RC] ASDIRECTED
[2017-03-23 13:27] LABS: CHLORIDE,CL 104 mmol/L (98-110); SODIUM,NA 136 mmol/L (136-146)
[2017-03-23] MEDS: fentaNYL 100 MCG/2 ML SDV ONE ×2 (13:34→13:40)
[2017-03-23] MEDS ORDERED: cefTRIAXone 1 GM in Premix Bag 1 BAG IV ONE (13:34)
[2017-03-23] MEDS ORDERED: fentaNYL 100 MCG/2 ML SDV IVPUSH ONE (13:36)
[2017-03-23] MEDS ORDERED: Ketamine 500 mg/10 ML MDV ONE (13:45)
[2017-03-23] MEDS ORDERED: Propofol 200 MG/20 ML SDV ONE (13:45)
[2017-03-23] MEDS ORDERED: diphenhydrAMINE 50 MG/ML SDV ONE (13:47)
[2017-03-23] MEDS ORDERED: Succinylcholine/Normal Saline 200 MG/10 ML Syringe ONE ×2 (13:47→14:20)
[2017-03-23] MEDS ORDERED: Ondansetron 4 MG/2 ML SDV ONE (13:47)
[2017-03-23] MEDS ORDERED: Lidocaine 2% 5 ML SDV ONE (13:47)
[2017-03-23] MEDS ORDERED: Methylergonovine 0.2 MG/1 ML Amp ONE (14:18)
[2017-03-23] MEDS ORDERED: Etomidate 2 MG/ML 20 ML SDV IVPUSH ONE (14:20)
[2017-03-23] MEDS ORDERED: Phenylephrine/Normal Saline 100 MCG/ML 10 ML Syringe ONE (14:21)
--- NOTE | 2017-03-23 14:48 | PCM.PREANE ---
Preanesthetic Assessment - Procedure Proposed Procedure: d/c for vaginal bleeding - Anesthesia/Transfusion/Family Hx Anesthesia History: No Prior Anesthesia Family History of Anesthesia Reaction: No Transfusion History: Prior Transfusion Without Reaction (pt currently recieving 2 u prbc) - Review of Systems General: No Symptoms Pulmonary: No Symptoms Cardiovascular: No Symptoms (pt currently tachycardic at 130) Gastrointestinal: Abdominal Pain Neurological: No Symptoms Other: Reports: None (pt s/p spontaneous 22 weeks. this occured 2 weeks ago) - Physical Assessment NPO Status Date: 03/22/17 O2 Sat by Pulse Oximetry: 100 Respiratory Rate: 20 Vital Signs: Last Vital Signs Temp 37.2 C 03/23/17 12:40 Pulse 112 H 03/23/17 12:40 Resp 20 03/23/17 12:40 BP 117/60 03/23/17 12:40 Pulse Ox 100 03/23/17 12:40 Height: 1.7 m Weight: 53.524 kg ASA Class: 2E Mental Status: Alert & Oriented x3 Airway Class: Mallampati = 2 Dentition: Reports: Normal Dentition Thyro-Mental Finger Breadths: 3 Mouth Opening Finger Breadths: 2 ROM/Head Extension: Full Lungs: Clear to Auscultation, Normal Respiratory Effort Cardiovascular: Regular Rate, Regular Rhythm, Tachycardia - Lab Values: Laboratory Last Values WBC 10.32 K/uL (4.0-11.0) 03/23/17 12:49 RBC 2.56 M/uL (4.30-5.90) L 03/23/17 12:49 Hgb 7.7 g/dL (12.0-16.0) L 03/23/17 12:49 Hct 24.0 % (36.0-46.0) L 03/23/17 12:49 MCV 93.8 fL (80.0-98.0) 03/23/17 12:49 MCH 30.1 pg (27.0-32.0) 03/23/17 12:49 MCHC 32.1 g/dL (31.0-37.0) 03/23/17 12:49 RDW Std Deviation 48.7 fl (28.0-62.0) 03/23/17 12:49 RDW Coeff of Imer 14 % (11.0-15.0) 03/23/17 12:49 Plt Count 443 K/uL (150-400) H 03/23/17 12:49 MPV 9.30 fL (7.40-12.00) 03/23/17 12:49 Neut % (Auto) 73.5 % (48.0-80.0) 03/23/17 12:49 Lymph % (Auto) 21.3 % (16.0-40.0) 03/23/17 12:49 [place] % (Auto) 4.9 % (0.0-15.0) 03/23/17 12:49 Eos % (Auto) 0.0 % (0.0-7.0) 03/23/17 12:49 Baso % (Auto) 0.3 % (0.0-1.5) 03/23/17 12:49 Neut # (Auto) 7.6 K/uL (1.4-5.7) H 03/23/17 12:49 Lymph # (Auto) 2.2 K/uL (0.6-2.4) 03/23/17 12:49 [place] # (Auto) 0.5 K/uL (0.0-0.8) 03/23/17 12:49 Eos # (Auto) 0.0 K/uL (0.0-0.7) 03/23/17 12:49 Baso # (Auto) 0.0 K/uL (0.0-0.1) 03/23/17 12:49 Nucleated RBC % 0.0 /100WBC 03/23/17 12:49 Nucleated RBCs # 0 K/uL 03/23/17 12:49 Sodium 136 mmol/L (136-146) 03/23/17 12:49 Potassium 3.7 mmol/L (3.5-5.1) 03/23/17 12:49 Chloride 104 mmol/L (98-110) 03/23/17 12:49 Carbon Dioxide 21 mmol/L (21-31) 03/23/17 12:49 BUN 8 mg/dL (6.0-23.0) 03/23/17 12:49 Creatinine 0.7 mg/dL (0.6-1.5) 03/23/17 12:49 Est Cr Clr Drug Dosing 102.00 mL/min 03/23/17 12:49 Estimated GFR (MDRD) > 60.0 ml/min 03/23/17 12:49 Glucose 116 mg/dL (60-110) H 03/23/17 12:49 Calcium 8.4 mg/dL (8.8-10.8) L 03/23/17 12:49 Total Bilirubin 0.6 mg/dL (0.1-1.5) 03/23/17 12:49 AST 7 IU/L (5-40) 03/23/17 12:49 ALT 15 IU/L (8-54) 03/23/17 12:49 Alkaline Phosphatase 81 (40-150) 03/23/17 12:49 Total Protein 6.7 g/dL (6.0-8.0) 03/23/17 12:49 Albumin 3.2 g/dL (3.5-5.0) L 03/23/17 12:49 Globulin 3.5 g/dL (2.0-3.5) 03/23/17 12:49 Albumin/Globulin Ratio 0.9 (1.3-2.8) L 03/23/17 12:49 HCG, Quant 691.5 mIU/mL 03/23/17 12:49 Blood Type O POSITIVE 03/23/17 12:49 Antibody Screen NEGATIVE 03/23/17 12:49 Crossmatch See Detail 03/23/17 12:49 - Allergies Allergies/Adverse Reactions: Allergies Allergy/AdvReac Type Severity Reaction Status Date / Time No Known Allergies Allergy Verified 03/23/17 13:01 - Blood Blood Available: Yes Product(s) Available: PRBC - Acknowledgements Anesthesia Type Planned: General Anesthesia Pt an Appropriate Candidate for the Planned Anesthesia: Yes Alternatives and Risks of Anesthesia Discussed w Pt/Guardian: Yes Pt/Guardian Understands and Agrees with Anesthesia Plan: Yes PreAnesthesia Questionnaire - Past Health History Medical/Surgical History: Denies 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 [No Known Home Meds] 06/29/14 [History] - CURRENT (IN HOUSE) MEDS Current Meds: Current Medications Sodium Chloride (Saline Flush) 10 ml FLUSH ASDIRECTED PRN PRN Reason: Keep Vein Open Last Admin: 03/23/17 13:34 Dose: 10 ml Sodium Chloride (Saline Flush) 2.5 ml FLUSH ASDIRECTED PRN PRN Reason: Keep Vein Open Last Admin: 03/23/17 13:34 Dose: 2.5 ml Discontinued Medications Diphenhydramine HCl (Benadryl) Confirm Administered Dose 50 mg .ROUTE .STK-MED ONE Stop: 03/23/17 13:48 Etomidate (Amidate) Confirm Administered Dose 40 mg IVPUSH .STK-MED ONE Stop: 03/23/17 14:21 Fentanyl (Sublimaze) Confirm Administered Dose 100 mcg .ROUTE .STK-MED ONE Stop: 03/23/17 12:48 Last Admin: 03/23/17 13:40 Dose: Not Given Fentanyl (Sublimaze) 100 mcg IVPUSH ONETIME ONE Stop: 03/23/17 13:37 Last Admin: 03/23/17 13:40 Dose: 100 mcg Ceftriaxone Sodium/Dextrose 1 (gm/ Premix) 50 mls @ 100 mls/hr IV ONETIME ONE Stop: 03/23/17 14:03 Ketamine HCl (Ketalar) Confirm Administered Dose 500 mg .ROUTE .STK-MED ONE Stop: 03/23/17 13:46 Lidocaine (Xylocaine-Mpf 2%) Confirm Administered Dose 5 ml .ROUTE .STK-MED ONE Stop: 03/23/17 13:48 Methylergonovine Maleate (Methergine) Confirm Administered Dose 0.2 mg .ROUTE .STK-MED ONE Stop: 03/23/17 14:19 Ondansetron HCl (Zofran) Confirm Administered Dose 4 mg .ROUTE .STK-MED ONE Stop: 03/23/17 13:48 Phenylephrine HCl (Phenylephrine In Ns 100 Mcg/Ml) Confirm Administered Dose 1 mg .ROUTE .STK-MED ONE Stop: 03/23/17 14:22 Propofol (Diprivan 20 Ml) Confirm Administered Dose 200 mg .ROUTE .STK-MED ONE Stop: 03/23/17 13:46 Succinylcholine Chloride (Succinylcholine In Ns Pf) Confirm Administered Dose 200 mg .ROUTE .STK-MED ONE Stop: 03/23/17 13:48 Succinylcholine Chloride (Succinylcholine In Ns Pf) Confirm Administered Dose 200 mg .ROUTE .STK-MED ONE Stop: 03/23/17 14:21
[2017-03-23] MEDS ORDERED: fentaNYL 100 MCG/2 ML SDV IVPUSH PRN (14:49)
--- NOTE | 2017-03-23 15:05 | PCM.POSTAN ---
POST ANESTHESIA ASSESSMENT - MENTAL STATUS Mental Status: Oriented, Somnolent - VITAL SIGNS Pulse Rate: 125 SaO2: 100 Resp Rate: 15 Blood Pressure: 117/69 Temperature: 38.1 C - RESPIRATORY Respiratory Status: Respiratory Rate WNL, Airway Patent, O2 Saturation Stable - CARDIOVASCULAR CV Status: Elevated Pulse Rate (hr lower than preop but remains tachycardic) - GASTROINTESTINAL GI Status: No Symptoms - PAIN Pain Score: 0 - POST OP HYDRATION Hydration Status: Adequate & Stable
[2017-03-23] MEDS ORDERED: Promethazine 25 MG/ML SDV IM PRN (15:48)
[2017-03-23] MEDS ORDERED: Morphine 4 MG/ML Syringe IVPUSH PRN (15:48)
[2017-03-23] MEDS ORDERED: Morphine 2 MG/ML Syringe IVPUSH PRN (15:48)
[2017-03-23] MEDS ORDERED: Acetaminophen/oxyCODONE 325-5 MG Tab PO PRN ×2 (15:48)
[2017-03-23] MEDS ORDERED: Ketorolac 30 MG/ML SDV IVPUSH ONE (15:48)
[2017-03-23] MEDS ORDERED: Ondansetron 4 MG/2 ML SDV IVPUSH PRN (15:48)
--- NOTE | 2017-03-23 15:55 | PCM.OPNOTE ---
- General Post-Op/Procedure Note Date of Surgery/Procedure: 03/23/17 Operative Procedure(s): D&E, manual removal of POC and endometrial scraping Pre Op Diagnosis: Bleeding Post-Op Diagnosis: Same Anesthesia Technique: General ET Tube Primary Surgeon: Edgar Caldera EBL in mLs: 800 Complications: None Condition: Poor
[2017-03-23] MEDS ORDERED: Sodium Chloride 0.9% 1,000 ML IV ONE (17:04)
[2017-03-23] MEDS: Lactated Ringers 1,000 ML IV SCH ×2 (17:06→22:17)
--- NOTE | 2017-03-23 19:52 | PCM48HPAN ---
Post Anesthesia Note - EVALUATION WITHIN 48HRS OF ANESTHETIC Vital Signs in Normal Range: Yes Patient Participated in Evaluation: Yes Respiratory Function Stable: Yes Airway Patent: Yes Cardiovascular Function Stable: Yes Hydration Status Stable: Yes Pain Control Satisfactory: Yes Nausea and Vomiting Control Satisfactory: Yes Mental Status Recovered: Yes
[2017-03-23] MEDS ORDERED: Ketorolac 30 MG/ML SDV IVPUSH PRN (21:00)
--- NOTE | 2017-03-23 22:30 | OR ---
SURGEON: Edgar Caldera MD DATE OF PROCEDURE: PREOPERATIVE DIAGNOSES: Vaginal bleeding, retained products of conception. POSTOPERATIVE DIAGNOSIS: Vaginal bleeding, retained products of conception. OPERATION PERFORMED: Examination under anesthesia, removal of retained products of conception, suction and curettage, and regular curette. 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 ANESTHESIA: Dr. Vivas and nurse public health internship. ESTIMATED BLOOD LOSS: Including the blood clot in the vagina, it is about 700 mL. COMPLICATIONS: None. FINDING: Products of conception. INDICATION FOR SURGERY: Ten days ago, she had spontaneous vaginal delivery of 22 stillborn fetus. The patient at the time had a placenta removed manually and it seems to be that the bleeding is stopped after removing the placenta and there was no evidence for retained products of conception; however, the patient today started bleeding and she was rushed to the emergency room by ambulance and she was resuscitated and given blood in the emergency room. I evaluated her there and find that there are products of conception protruding through the cervical canal. It was difficult to examine, to evaluate the patient in the ER, so a decision was made to do examination under anesthesia and possible D and E versus D and C. PROCEDURE IN DETAIL: The patient was brought to the OR, properly identified. After adequate level of anesthesia, the patient was prepped and draped in sterile fashion as usual. The weighted speculum was placed in vagina. Blood clot was removed from the vagina and ring forceps was applied to the anterior lips of the cervix which was already dilated and then I used another ring to remove the products of the conception which was protruded through the cervical os and then multiple pieces of products of conception was removed. Then, suction and curettage were done to remove the rest of the products of conception and using a large curette, gentle curetting of the endometrial cavity was done. It was reasonably felt that it was empty and there was no more products of conception and methargen was given to the patient and the bleeding very well slowed, almost stopped out. I went ahead and put a vaginal pack, part of it was in the lower part of the uterus and part in the vagina to put pressure on the bleeding spot and the procedure ended. Instrument and sponge count was correct. The patient tolerated the procedure well, went to recovery room in stable general condition. JUAN / MABEL /[id number]
[2017-03-24 05:46] LABS: CHLORIDE,CL 109 mmol/L (98-110); SODIUM,NA 138 mmol/L (136-146)
[2017-03-24] MEDS: Lactated Ringers 1,000 ML IV SCH (06:36)
--- NOTE | 2017-03-24 08:54 | PCM.SURGPN ---
- General Info POD#: 1 Functional Status: Reports: Pain Controlled - Review of Systems General: Reports: No Symptoms HEENT: Reports: No Symptoms Pulmonary: Reports: No Symptoms Cardiovascular: Reports: No Symptoms Gastrointestinal: Reports: No Symptoms Genitourinary: Reports: No Symptoms Musculoskeletal: Reports: No Symptoms Skin: Reports: No Symptoms Neurological: Reports: No Symptoms Psychiatric: Reports: No Symptoms - Patient Data Vitals - Most Recent: Last Vital Signs Temp 36.5 C 03/24/17 04:00 Pulse 88 03/24/17 04:00 Resp 14 03/24/17 04:00 BP 102/66 03/24/17 04:00 Pulse Ox 100 03/24/17 04:00 Weight - Most Recent: 53.524 kg I&O - Last 24 Hours: Intake & Output 03/23/17 03/24/17 03/24/17 22:59 06:59 14:59 Intake Total 2200 1500 Output Total 1250 Balance 2200 250 Lab Results Last 24 Hrs: Laboratory Results - last 24 hr 03/23/17 03/23/17 03/23/17 Range/Units 12:49 12:49 12:49 WBC 10.32 (4.0-11.0) K/uL RBC 2.56 L (4.30-5.90) M/uL Hgb 7.7 L (12.0-16.0) g/dL Hct 24.0 L (36.0-46.0) % MCV 93.8 (80.0-98.0) fL MCH 30.1 (27.0-32.0) pg MCHC 32.1 (31.0-37.0) g/dL RDW Std Deviation 48.7 (28.0-62.0) fl RDW Coeff of Imer 14 (11.0-15.0) % Plt Count 443 H (150-400) K/uL MPV 9.30 (7.40-12.00) fL Neut % (Auto) 73.5 (48.0-80.0) % Lymph % (Auto) 21.3 (16.0-40.0) % [place] % (Auto) 4.9 (0.0-15.0) % Eos % (Auto) 0.0 (0.0-7.0) % Baso % (Auto) 0.3 (0.0-1.5) % Neut # (Auto) 7.6 H (1.4-5.7) K/uL Lymph # (Auto) 2.2 (0.6-2.4) K/uL [place] # (Auto) 0.5 (0.0-0.8) K/uL Eos # (Auto) 0.0 (0.0-0.7) K/uL Baso # (Auto) 0.0 (0.0-0.1) K/uL Nucleated RBC % 0.0 /100WBC Nucleated RBCs # 0 K/uL Sodium 136 (136-146) mmol/L Potassium 3.7 (3.5-5.1) mmol/L Chloride 104 (98-110) mmol/L Carbon Dioxide 21 (21-31) mmol/L BUN 8 (6.0-23.0) mg/dL Creatinine 0.7 (0.6-1.5) mg/dL Est Cr Clr Drug Dosing 102.00 mL/min Estimated GFR (MDRD) > 60.0 ml/min Glucose 116 H (60-110) mg/dL Calcium 8.4 L (8.8-10.8) mg/dL Total Bilirubin 0.6 (0.1-1.5) mg/dL AST 7 (5-40) IU/L ALT 15 (8-54) IU/L Alkaline Phosphatase 81 (40-150) Total Protein 6.7 (6.0-8.0) g/dL Albumin 3.2 L (3.5-5.0) g/dL Globulin 3.5 (2.0-3.5) g/dL Albumin/Globulin Ratio 0.9 L (1.3-2.8) HCG, Quant 691.5 mIU/mL Blood Type O POSITIVE Antibody Screen NEGATIVE Crossmatch 03/23/17 03/23/17 03/24/17 Range/Units 12:49 20:18 04:54 WBC 7.86 4.75 (4.0-11.0) K/uL RBC 3.26 L 2.64 L (4.30-5.90) M/uL Hgb 9.6 L 7.5 L (12.0-16.0) g/dL Hct 28.0 L 22.9 L (36.0-46.0) % MCV 85.9 86.7 (80.0-98.0) fL MCH 29.4 28.4 (27.0-32.0) pg MCHC 34.3 32.8 (31.0-37.0) g/dL RDW Std Deviation 48.5 50.3 (28.0-62.0) fl RDW Coeff of Imer 16 H 16 H (11.0-15.0) % Plt Count 236 188 (150-400) K/uL MPV 9.10 9.70 (7.40-12.00) fL Neut % (Auto) 79.7 58.2 (48.0-80.0) % Lymph % (Auto) 14.9 L 30.5 (16.0-40.0) % [place] % (Auto) 5.1 10.5 (0.0-15.0) % Eos % (Auto) 0.0 0.4 (0.0-7.0) % Baso % (Auto) 0.3 0.4 (0.0-1.5) % Neut # (Auto) 6.3 H 2.8 (1.4-5.7) K/uL Lymph # (Auto) 1.2 1.5 (0.6-2.4) K/uL [place] # (Auto) 0.4 0.5 (0.0-0.8) K/uL Eos # (Auto) 0.0 0.0 (0.0-0.7) K/uL Baso # (Auto) 0.0 0.0 (0.0-0.1) K/uL Nucleated RBC % 0.0 0.0 /100WBC Nucleated RBCs # 0 0 K/uL Sodium (136-146) mmol/L Potassium (3.5-5.1) mmol/L Chloride (98-110) mmol/L Carbon Dioxide (21-31) mmol/L BUN (6.0-23.0) mg/dL Creatinine (0.6-1.5) mg/dL Est Cr Clr Drug Dosing mL/min Estimated GFR (MDRD) ml/min Glucose (60-110) mg/dL Calcium (8.8-10.8) mg/dL Total Bilirubin (0.1-1.5) mg/dL AST (5-40) IU/L ALT (8-54) IU/L Alkaline Phosphatase (40-150) Total Protein (6.0-8.0) g/dL Albumin (3.5-5.0) g/dL Globulin (2.0-3.5) g/dL Albumin/Globulin Ratio (1.3-2.8) HCG, Quant mIU/mL Blood Type Antibody Screen Crossmatch See Detail 03/24/17 Range/Units 04:54 WBC (4.0-11.0) K/uL RBC (4.30-5.90) M/uL Hgb (12.0-16.0) g/dL Hct (36.0-46.0) % MCV (80.0-98.0) fL MCH (27.0-32.0) pg MCHC (31.0-37.0) g/dL RDW Std Deviation (28.0-62.0) fl RDW Coeff of [place]mer (11.0-15.0) % Plt Count (150-400) K/uL MPV (7.40-12.00) fL Neut % (Auto) (48.0-80.0) % Lymph % (Auto) (16.0-40.0) % [place] % (Auto) (0.0-15.0) % Eos % (Auto) (0.0-7.0) % Baso % (Auto) (0.0-1.5) % Neut # (Auto) (1.4-5.7) K/uL Lymph # (Auto) (0.6-2.4) K/uL [place] # (Auto) (0.0-0.8) K/uL Eos # (Auto) (0.0-0.7) K/uL Baso # (Auto) (0.0-0.1) K/uL Nucleated RBC % /100WBC Nucleated RBCs # K/uL Sodium 138 (136-146) mmol/L Potassium 4.0 (3.5-5.1) mmol/L Chloride 109 (98-110) mmol/L Carbon Dioxide 23 (21-31) mmol/L BUN 9 (6.0-23.0) mg/dL Creatinine 0.6 (0.6-1.5) mg/dL Est Cr Clr Drug Dosing 119.00 mL/min Estimated GFR (MDRD) > 60.0 ml/min Glucose 92 (60-110) mg/dL Calcium 7.5 L (8.8-10.8) mg/dL Total Bilirubin (0.1-1.5) mg/dL AST (5-40) IU/L ALT (8-54) IU/L Alkaline Phosphatase (40-150) Total Protein (6.0-8.0) g/dL Albumin (3.5-5.0) g/dL Globulin (2.0-3.5) g/dL Albumin/Globulin Ratio (1.3-2.8) HCG, Quant mIU/mL Blood Type Antibody Screen Crossmatch Med Orders - Current: Current Medications Lactated Ringer's (Ringers, Lactated) 1,000 mls @ 125 mls/hr IV ASDIRECTED ROSMERY Last Admin: 03/24/17 06:36 Dose: 125 mls/hr Ketorolac Tromethamine (Toradol) 30 mg IVPUSH Q6H PRN PRN Reason: Pain (severe 7-10) Stop: 03/28/17 21:01 Morphine Sulfate (Morphine) 2 mg IVPUSH Q2H PRN PRN Reason: Pain (severe 7-10) Morphine Sulfate (Morphine) 4 mg IVPUSH Q2H PRN PRN Reason: Pain (severe 7-10) Ondansetron HCl (Zofran) 4 mg IVPUSH Q6H PRN PRN Reason: Nausea/Vomiting Oxycodone/Acetaminophen (Percocet 325-5 Mg) 1 tab PO Q4H PRN PRN Reason: Pain (moderate 4-6) Oxycodone/Acetaminophen (Percocet 325-5 Mg) 2 tab PO Q4H PRN PRN Reason: Pain (moderate 4-6) Promethazine HCl (Phenergan) 25 mg IM Q6H PRN PRN Reason: Nausea/Vomiting Sodium Chloride (Saline Flush) 10 ml FLUSH ASDIRECTED PRN PRN Reason: Keep Vein Open Last Admin: 03/23/17 13:34 Dose: 10 ml Sodium Chloride (Saline Flush) 2.5 ml FLUSH ASDIRECTED PRN PRN Reason: Keep Vein Open Last Admin: 03/23/17 13:34 Dose: 2.5 ml Discontinued Medications Diphenhydramine HCl (Benadryl) Confirm Administered Dose 50 mg .ROUTE .STK-MED ONE Stop: 03/23/17 13:48 Etomidate (Amidate) Confirm Administered Dose 40 mg IVPUSH .STK-MED ONE Stop: 03/23/17 14:21 Fentanyl (Sublimaze) Confirm Administered Dose 100 mcg .ROUTE .STK-MED ONE Stop: 03/23/17 12:48 Last Admin: 03/23/17 13:40 Dose: Not Given Fentanyl (Sublimaze) 100 mcg IVPUSH ONETIME ONE Stop: 03/23/17 13:37 Last Admin: 03/23/17 13:40 Dose: 100 mcg Fentanyl (Sublimaze) 50 mcg IVPUSH Q5M PRN PRN Reason: Pain (severe 7-10) Stop: 03/23/17 16:00 Last Admin: 03/23/17 17:12 Dose: 50 mcg Ceftriaxone Sodium/Dextrose 1 (gm/ Premix) 50 mls @ 100 mls/hr IV ONETIME ONE Stop: 03/23/17 14:03 Last Admin: 03/23/17 18:44 Dose: Not Given Sodium Chloride (Normal Saline) 1,000 mls @ 1,000 mls/hr IV .Bolus ONE Stop: 03/23/17 18:03 Last Admin: 03/23/17 17:10 Dose: 1,000 mls/hr Ketamine HCl (Ketalar) Confirm Administered Dose 500 mg .ROUTE .STK-MED ONE Stop: 03/23/17 13:46 Ketorolac Tromethamine (Toradol) 30 mg IVPUSH ONETIME ONE Stop: 03/23/17 15:49 Last Admin: 03/23/17 16:58 Dose: 30 mg Lidocaine (Xylocaine-Mpf 2%) Confirm Administered Dose 5 ml .ROUTE .STK-MED ONE Stop: 03/23/17 13:48 Methylergonovine Maleate (Methergine) Confirm Administered Dose 0.2 mg .ROUTE .STK-MED ONE Stop: 03/23/17 14:19 Ondansetron HCl (Zofran) Confirm Administered Dose 4 mg .ROUTE .STK-MED ONE Stop: 03/23/17 13:48 Phenylephrine HCl (Phenylephrine In Ns 100 Mcg/Ml) Confirm Administered Dose 1 mg .ROUTE .STK-MED ONE Stop: 03/23/17 14:22 Propofol (Diprivan 20 Ml) Confirm Administered Dose 200 mg .ROUTE .STK-MED ONE Stop: 03/23/17 13:46 Succinylcholine Chloride (Succinylcholine In Ns Pf) Confirm Administered Dose 200 mg .ROUTE .STK-MED ONE Stop: 03/23/17 13:48 Succinylcholine Chloride (Succinylcholine In Ns Pf) Confirm Administered Dose 200 mg .ROUTE .STK-MED ONE Stop: 03/23/17 14:21 - Exam Wound/Incisions: Healing Well General: Alert, Oriented HEENT: Pupils Equal Neck: Supple Lungs: Clear to Auscultation, Normal Respiratory Effort Cardiovascular: Regular Rate, Regular Rhythm GI/Abdominal Exam: Normal Bowel Sounds, Soft, Non-Tender, No Organomegaly, No Distention, No Abnormal Bruit, No Mass, Pelvis Stable Extremities: Normal Inspection, Normal Range of Motion, Non-Tender, No Pedal Edema, Normal Capillary Refill Skin: Warm, Dry, Intact Neurological: No New Focal Deficit Psy/Mental Status: Alert, Normal Affect, Normal Mood - Problem List Review Problem List Initiated/Reviewed/Updated: Yes - My Orders Last 24 Hours: Active Orders 24 hr Category Date Time Status Patient Status [ADT] Routine ADT 03/23/17 15:49 Active Antiembolic Devices [RC] PER UNIT ROUTINE Care 03/23/17 15:50 Active Notify Provider Consults [RC] ASDIRECTED Care 03/23/17 13:48 Active Notify Provider Vital Signs [RC] ASDIRECTED Care 03/23/17 15:49 Active Oxygen Therapy [RC] ASDIRECTED Care 03/23/17 14:50 Active Oxygen Therapy [RC] ASDIRECTED Care 03/23/17 15:49 Active RT Incentive Spirometry [RC] Q2HWA Care 03/23/17 15:49 Active Up With Assistance [RC] PER UNIT ROUTINE Care 03/23/17 15:49 Active Up ad Kassidy [RC] PER UNIT ROUTINE Care 03/23/17 15:49 Active Vital Signs [RC] Q4H Care 03/23/17 15:49 Active Consult to Physician [CONS] Stat Cons 03/23/17 13:46 Active Regular Diet [DIET] Diet 03/23/17 Dinner Active RED BLOOD CELLS LP [BBK] Stat Lab 03/23/17 12:49 Results Acetaminophen/oxyCODONE [Percocet 325-5 MG] Med 03/23/17 15:48 Active 1 tab PO Q4H PRN Acetaminophen/oxyCODONE [Percocet 325-5 MG] Med 03/23/17 15:48 Active 2 tab PO Q4H PRN Ketorolac [Toradol] Med 03/23/17 21:00 Active 30 mg IVPUSH Q6H PRN Lactated Ringers [Ringers, Lactated] 1,000 ml Med 03/23/17 16:00 Active IV ASDIRECTED Morphine Med 03/23/17 15:48 Active 2 mg IVPUSH Q2H PRN Morphine Med 03/23/17 15:48 Active 4 mg IVPUSH Q2H PRN Ondansetron [Zofran] Med 03/23/17 15:48 Active 4 mg IVPUSH Q6H PRN Promethazine [Phenergan] Med 03/23/17 15:48 Active 25 mg IM Q6H PRN Sodium Chloride 0.9% [Saline Flush] Med 03/23/17 12:35 Active 10 ml FLUSH ASDIRECTED PRN Sodium Chloride 0.9% [Saline Flush] Med 03/23/17 12:35 Active 2.5 ml FLUSH ASDIRECTED PRN Peripheral IV Discontinue [OM.PC] Routine Oth 03/23/17 15:49 Ordered Saline Lock Insert [OM.PC] Stat Oth 03/23/17 12:35 Ordered Sequential Compression Device [OM.PC] Per Unit Routine Oth 03/23/17 15:49 Ordered Transfuse Red Blood Cells [COMM] Stat Oth 03/23/17 13:05 Ordered Resuscitation Status Routine Resus Stat 03/23/17 15:48 Ordered Medication Orders Lactated Ringer's (Ringers, Lactated) 1,000 mls @ 125 mls/hr IV ASDIRECTED ROSMERY Last Admin: 03/24/17 06:36 Dose: 125 mls/hr Infusion: 03/24/17 06:17 Dose: 125 mls/hr Admin: 03/23/17 22:17 Dose: 125 mls/hr Infusion: 03/23/17 22:17 Dose: 125 mls/hr Admin: 03/23/17 17:06 Dose: 125 mls/hr Ketorolac Tromethamine (Toradol) 30 mg IVPUSH Q6H PRN PRN Reason: Pain (severe 7-10) Stop: 03/28/17 21:01 Morphine Sulfate (Morphine) 2 mg IVPUSH Q2H PRN PRN Reason: Pain (severe 7-10) Morphine Sulfate (Morphine) 4 mg IVPUSH Q2H PRN PRN Reason: Pain (severe 7-10) Ondansetron HCl (Zofran) 4 mg IVPUSH Q6H PRN PRN Reason: Nausea/Vomiting Oxycodone/Acetaminophen (Percocet 325-5 Mg) 1 tab PO Q4H PRN PRN Reason: Pain (moderate 4-6) Oxycodone/Acetaminophen (Percocet 325-5 Mg) 2 tab PO Q4H PRN PRN Reason: Pain (moderate 4-6) Promethazine HCl (Phenergan) 25 mg IM Q6H PRN PRN Reason: Nausea/Vomiting Sodium Chloride (Saline Flush) 10 ml FLUSH ASDIRECTED PRN PRN Reason: Keep Vein Open Last Admin: 03/23/17 13:34 Dose: 10 ml Sodium Chloride (Saline Flush) 2.5 ml FLUSH ASDIRECTED PRN PRN Reason: Keep Vein Open Last Admin: 03/23/17 13:34 Dose: 2.5 ml - Assessment Assessment (Free Text/Narrative):: Status post examination under anesthesia removal retained products of conception and D&C postoperative day #1 the patient is not a bleeding hair vital signs stable her hemoglobin is 7.7 the vaginal pack is removed and there is no active bleeding - Plan Plan (Free Text/Narrative):: Planning to ambulate the patient and observe for the next 6-8 hour if she is nonbleeding and if her vital signs stable and if she is not orthostatic or hypotensive I'm planning to send her home today
[2017-03-24] MEDS ORDERED: FLU Vacc QS 2017-18 (36mos UP)/PF 60 MCG/0.5 ML Syringe IM ONE (16:15)
--- NOTE | 2017-03-25 09:47 | PCM.SURGPN ---
- General Info POD#: 2 Functional Status: Reports: Pain Controlled - Review of Systems General: Reports: No Symptoms HEENT: Reports: No Symptoms Pulmonary: Reports: No Symptoms Cardiovascular: Reports: No Symptoms Gastrointestinal: Reports: No Symptoms Genitourinary: Reports: No Symptoms Musculoskeletal: Reports: No Symptoms Skin: Reports: No Symptoms Neurological: Reports: No Symptoms Psychiatric: Reports: No Symptoms - Patient Data Vitals - Most Recent: Last Vital Signs Temp 36.5 C 03/25/17 08:00 Pulse 97 03/25/17 08:00 Resp 22 H 03/25/17 08:00 BP 103/74 03/25/17 08:00 Pulse Ox 100 03/25/17 08:00 Weight - Most Recent: 53.524 kg I&O - Last 24 Hours: Intake & Output 03/24/17 03/25/17 03/25/17 22:59 06:59 14:59 Intake Total 770 600 Output Total 1750 2050 Balance -980 -1450 Lab Results Last 24 Hrs: Laboratory Results - last 24 hr 03/24/17 03/25/17 Range/Units 20:05 06:06 WBC 3.88 L 4.20 (4.0-11.0) K/uL RBC 2.81 L 2.92 L (4.30-5.90) M/uL Hgb 8.1 L 8.2 L (12.0-16.0) g/dL Hct 24.5 L 25.6 L (36.0-46.0) % MCV 87.2 87.7 (80.0-98.0) fL MCH 28.8 28.1 (27.0-32.0) pg MCHC 33.1 32.0 (31.0-37.0) g/dL RDW Std Deviation 50.9 51.1 (28.0-62.0) fl RDW Coeff of Imer 16 H 16 H (11.0-15.0) % Plt Count 189 196 (150-400) K/uL MPV 9.50 9.20 (7.40-12.00) fL Neut % (Auto) 52.4 51.8 (48.0-80.0) % Lymph % (Auto) 37.6 36.0 (16.0-40.0) % Bath % (Auto) 8.2 9.3 (0.0-15.0) % Eos % (Auto) 1.3 2.4 (0.0-7.0) % Baso % (Auto) 0.5 0.5 (0.0-1.5) % Neut # (Auto) 2.0 2.2 (1.4-5.7) K/uL Lymph # (Auto) 1.5 1.5 (0.6-2.4) K/uL Bath # (Auto) 0.3 0.4 (0.0-0.8) K/uL Eos # (Auto) 0.1 0.1 (0.0-0.7) K/uL Baso # (Auto) 0.0 0.0 (0.0-0.1) K/uL Nucleated RBC % 0.0 0.0 /100WBC Nucleated RBCs # 0 0 K/uL Med Orders - Current: Current Medications Ketorolac Tromethamine (Toradol) 30 mg IVPUSH Q6H PRN PRN Reason: Pain (severe 7-10) Stop: 03/28/17 21:01 Morphine Sulfate (Morphine) 2 mg IVPUSH Q2H PRN PRN Reason: Pain (severe 7-10) Morphine Sulfate (Morphine) 4 mg IVPUSH Q2H PRN PRN Reason: Pain (severe 7-10) Ondansetron HCl (Zofran) 4 mg IVPUSH Q6H PRN PRN Reason: Nausea/Vomiting Oxycodone/Acetaminophen (Percocet 325-5 Mg) 1 tab PO Q4H PRN PRN Reason: Pain (moderate 4-6) Last Admin: 03/24/17 11:46 Dose: 1 tab Oxycodone/Acetaminophen (Percocet 325-5 Mg) 2 tab PO Q4H PRN PRN Reason: Pain (moderate 4-6) Promethazine HCl (Phenergan) 25 mg IM Q6H PRN PRN Reason: Nausea/Vomiting Sodium Chloride (Saline Flush) 10 ml FLUSH ASDIRECTED PRN PRN Reason: Keep Vein Open Last Admin: 03/23/17 13:34 Dose: 10 ml Sodium Chloride (Saline Flush) 2.5 ml FLUSH ASDIRECTED PRN PRN Reason: Keep Vein Open Last Admin: 03/23/17 13:34 Dose: 2.5 ml Discontinued Medications Diphenhydramine HCl (Benadryl) Confirm Administered Dose 50 mg .ROUTE .STK-MED ONE Stop: 03/23/17 13:48 Etomidate (Amidate) Confirm Administered Dose 40 mg IVPUSH .STK-MED ONE Stop: 03/23/17 14:21 Fentanyl (Sublimaze) Confirm Administered Dose 100 mcg .ROUTE .STK-MED ONE Stop: 03/23/17 12:48 Last Admin: 03/23/17 13:40 Dose: Not Given Fentanyl (Sublimaze) 100 mcg IVPUSH ONETIME ONE Stop: 03/23/17 13:37 Last Admin: 03/23/17 13:40 Dose: 100 mcg Fentanyl (Sublimaze) 50 mcg IVPUSH Q5M PRN PRN Reason: Pain (severe 7-10) Stop: 03/23/17 16:00 Last Admin: 03/23/17 17:12 Dose: 50 mcg Ceftriaxone Sodium/Dextrose 1 (gm/ Premix) 50 mls @ 100 mls/hr IV ONETIME ONE Stop: 03/23/17 14:03 Last Admin: 03/23/17 18:44 Dose: Not Given Lactated Ringer's (Ringers, Lactated) 1,000 mls @ 125 mls/hr IV ASDIRECTED ROSMERY Last Admin: 03/24/17 06:36 Dose: 125 mls/hr Sodium Chloride (Normal Saline) 1,000 mls @ 1,000 mls/hr IV .Bolus ONE Stop: 03/23/17 18:03 Last Admin: 03/23/17 17:10 Dose: 1,000 mls/hr Influenza Virus Vaccine (Fluarix Quad 7899-1018) 60 mcg IM .ONCE ONE Stop: 03/24/17 16:16 Ketamine HCl (Ketalar) Confirm Administered Dose 500 mg .ROUTE .STK-MED ONE Stop: 03/23/17 13:46 Ketorolac Tromethamine (Toradol) 30 mg IVPUSH ONETIME ONE Stop: 03/23/17 15:49 Last Admin: 03/23/17 16:58 Dose: 30 mg Lidocaine (Xylocaine-Mpf 2%) Confirm Administered Dose 5 ml .ROUTE .STK-MED ONE Stop: 03/23/17 13:48 Methylergonovine Maleate (Methergine) Confirm Administered Dose 0.2 mg .ROUTE .STK-MED ONE Stop: 03/23/17 14:19 Ondansetron HCl (Zofran) Confirm Administered Dose 4 mg .ROUTE .STK-MED ONE Stop: 03/23/17 13:48 Phenylephrine HCl (Phenylephrine In Ns 100 Mcg/Ml) Confirm Administered Dose 1 mg .ROUTE .STK-MED ONE Stop: 03/23/17 14:22 Propofol (Diprivan 20 Ml) Confirm Administered Dose 200 mg .ROUTE .STK-MED ONE Stop: 03/23/17 13:46 Succinylcholine Chloride (Succinylcholine In Ns Pf) Confirm Administered Dose 200 mg .ROUTE .STK-MED ONE Stop: 03/23/17 13:48 Succinylcholine Chloride (Succinylcholine In Ns Pf) Confirm Administered Dose 200 mg .ROUTE .STK-MED ONE Stop: 03/23/17 14:21 - Exam Wound/Incisions: Healing Well General: Alert, Oriented HEENT: Pupils Equal Neck: Supple Lungs: Clear to Auscultation, Normal Respiratory Effort Cardiovascular: Regular Rate, Regular Rhythm GI/Abdominal Exam: Normal Bowel Sounds, Soft, Non-Tender, No Organomegaly, No Distention, No Abnormal Bruit, No Mass, Pelvis Stable Extremities: Normal Inspection, Normal Range of Motion, Non-Tender, No Pedal Edema, Normal Capillary Refill Skin: Warm, Dry, Intact Neurological: No New Focal Deficit Psy/Mental Status: Alert, Normal Affect, Normal Mood - Problem List Review Problem List Initiated/Reviewed/Updated: Yes - My Orders Last 24 Hours: Active Orders 24 hr Category Date Time Status Transfuse RBC [Transfuse Red Blood Cells] [COMM] Ot 03/24/17 11:37 Ordered Routine Medication Orders Ketorolac Tromethamine (Toradol) 30 mg IVPUSH Q6H PRN PRN Reason: Pain (severe 7-10) Stop: 03/28/17 21:01 Morphine Sulfate (Morphine) 2 mg IVPUSH Q2H PRN PRN Reason: Pain (severe 7-10) Morphine Sulfate (Morphine) 4 mg IVPUSH Q2H PRN PRN Reason: Pain (severe 7-10) Ondansetron HCl (Zofran) 4 mg IVPUSH Q6H PRN PRN Reason: Nausea/Vomiting Oxycodone/Acetaminophen (Percocet 325-5 Mg) 1 tab PO Q4H PRN PRN Reason: Pain (moderate 4-6) Last Admin: 03/24/17 11:46 Dose: 1 tab Oxycodone/Acetaminophen (Percocet 325-5 Mg) 2 tab PO Q4H PRN PRN Reason: Pain (moderate 4-6) Promethazine HCl (Phenergan) 25 mg IM Q6H PRN PRN Reason: Nausea/Vomiting Sodium Chloride (Saline Flush) 10 ml FLUSH ASDIRECTED PRN PRN Reason: Keep Vein Open Last Admin: 03/23/17 13:34 Dose: 10 ml Sodium Chloride (Saline Flush) 2.5 ml FLUSH ASDIRECTED PRN PRN Reason: Keep Vein Open Last Admin: 03/23/17 13:34 Dose: 2.5 ml - Assessment Assessment (Free Text/Narrative):: doing well - Plan Plan (Free Text/Narrative):: send home today
[2017-03-25 11:40] VITALS: BP 102/68
== END 2017-03-25 11:40 | disposition home or self-care (01) ==
LOC: MW.ED 12:33 → MW.SDS 13:24 → MW.MS 16:13 → MW.SDS 03-24 11:37
PROVIDERS: ADMIT Obstetrics & Gynecology; ATTEND Obstetrics & Gynecology
DX: O03.1 Delayed or excessive hemorrhage following incomplete spontaneous abortion (principal)
CPT/HCPCS: 36415; 36430; 59812; 80048; 80053; 84702; 85025; 86850; 86900; 86901; 86920; 86921; 86922; 88305; 90686; 96374; 99291; A9270; G0008; G0378; J1200; J1885; J2210; J2405; J3010; J7040; J7120; P9016; 00940; 96361; 99283; J2704

== ENCOUNTER 2022-02-12 05:06 | Inpatient (IN) | payer OTHER ==
[2022-02-12] MEDS ORDERED: Sodium Chloride 0.9% 2.5 ML Syringe FLUSH PRN (05:24)
[2022-02-12] MEDS ORDERED: Sodium Chloride 0.9% 10 ML Syringe FLUSH PRN (05:24)
[2022-02-12] MEDS ORDERED: Ondansetron 4 MG/2 ML SDV IVPUSH PRN ×3 (05:24→09:36)
[2022-02-12] MEDS ORDERED: Citric Acid/Sodium Citrate Solution 30 ML Cup PO ONE (05:24)
[2022-02-12] MEDS ORDERED: Sodium Chloride 0.9% 20 ML SDV IV PRN (05:24)
[2022-02-12] MEDS ORDERED: Oxytocin/0.9 % Sodium Chloride 30 UNIT/500 ML BAG IV SCH (05:30)
[2022-02-12] MEDS ORDERED: Lactated Ringers 1,000 ML IV SCH ×2 (05:30→08:00)
[2022-02-12] MEDS ORDERED: fentaNYL 100 MCG/2 ML SDV ONE (07:29)
[2022-02-12] MEDS ORDERED: Morphine PF 10 MG/10 ML SDV ONE (07:29)
[2022-02-12] MEDS ORDERED: ceFAZolin 2 GM in Premix Bag 1 BAG IV ONE (07:30)
[2022-02-12] MEDS ORDERED: Bupivacaine 0.25%/EPINEPHrine 1:200,000 10 ML SDV ONE (07:40)
[2022-02-12] MEDS ORDERED: Oxytocin 10 Units/1 ML SDV ONE (07:43)
[2022-02-12] MEDS ORDERED: Dexamethasone 4 MG/ML 5 ML MDV ONE (07:43)
[2022-02-12] MEDS ORDERED: Ondansetron 4 MG/2 ML SDV ONE (07:43)
[2022-02-12] MEDS ORDERED: Ketorolac 30 MG/ML SDV ONE ×2 (07:43→09:24)
[2022-02-12] MEDS ORDERED: Tranexamic Acid 1,000 MG in Sodium Chloride 0.9% 100 ML IV PRN (07:51)
[2022-02-12] MEDS ORDERED: Methylergonovine 0.2 MG/1 ML Amp IM PRN (07:51)
[2022-02-12] MEDS ORDERED: diphenhydrAMINE 50 MG/ML SDV IVPUSH PRN (07:51)
[2022-02-12] MEDS ORDERED: Acetaminophen/oxyCODONE 325-5 MG Tab PO PRN ×3 (07:51→09:36)
[2022-02-12] MEDS ORDERED: Bisacodyl 10 MG Supp RECTAL PRN (07:51)
[2022-02-12] MEDS ORDERED: Lanolin 100% Cream 7 GM Tube TOP PRN (07:51)
[2022-02-12] MEDS ORDERED: Misoprostol 200 MCG Tab RECTAL PRN (07:51)
[2022-02-12] MEDS ORDERED: Oxytocin 10 Units/1 ML SDV IM PRN (07:51)
[2022-02-12] MEDS ORDERED: Phenylephrine HCl In 0.9% NaCl 1 MG/10 ML Vial ONE (08:00)
[2022-02-12] MEDS ORDERED: Ketorolac 30 MG/ML SDV IVPUSH SCH (08:00)
[2022-02-12] MEDS ORDERED: ceFAZolin 1 GM Vial ONE (08:25)
[2022-02-12] MEDS ORDERED: ePHEDrine 50 MG/ML SDV IVPUSH PRN (09:36)
[2022-02-12] MEDS ORDERED: fentaNYL 50 MCG/ML SDV IVPUSH PRN (09:36)
[2022-02-12] MEDS ORDERED: Phenylephrine HCl In 0.9% NaCl 1 MG/10 ML Vial IVPUSH SCH (09:45)
[2022-02-12] MEDS: diphenhydrAMINE 50 MG/ML SDV IVPUSH PRN ×4 (10:06→17:36)
[2022-02-12] MEDS: Ketorolac 30 MG/ML SDV IVPUSH SCH ×2 (14:52→21:09)
[2022-02-12] MEDS ORDERED: Nalbuphine HCl 10 MG/ 1ML Amp ONE (19:37)
[2022-02-12] MEDS: Nalbuphine HCl 10 MG/ 1ML Amp IVPUSH PRN ×2 (19:50→23:58)
[2022-02-12] MEDS: Docusate Sodium 100 MG Cap PO SCH (21:08)
[2022-02-13] MEDS: Ketorolac 30 MG/ML SDV IVPUSH SCH ×2 (04:07→10:02)
[2022-02-13] MEDS: Nalbuphine HCl 10 MG/ 1ML Amp IVPUSH PRN (08:13)
[2022-02-13] MEDS: Docusate Sodium 100 MG Cap PO SCH ×2 (10:02→22:57)
[2022-02-13] MEDS ORDERED: Ibuprofen 800 MG Tab PO PRN (15:00)
[2022-02-13] MEDS: diphenhydrAMINE 25 MG Cap PO PRN (18:12)
[2022-02-14] MEDS: diphenhydrAMINE 25 MG Cap PO PRN (00:05)
[2022-02-14 08:04] VITALS: BP 113/72; PULSE 70
== END 2022-02-14 12:05 | disposition home or self-care (01) | DRG 788 ==
LOC: MW.OB 05:06
PROVIDERS: ADMIT Obstetrics & Gynecology Obstetrics; ATTEND Obstetrics & Gynecology Obstetrics
PROC: 10D00Z1 Extraction of Products of Conception, Low, Open Approach (ICD-10-PCS; principal; 2022-02-12)
DX: O34.211 Maternal care for low transverse scar from previous cesarean delivery (principal); Z37.0 Single live birth; Z3A.40 40 weeks gestation of pregnancy
CPT/HCPCS: 01961; 36415; 59025; 64488; 85014; 85018; 85027; 86592; 86850; 86900; 86901; A9270-GY; J0690; J1100; J1200; J1885; J2274; J2300; J2405; J2590; J3010; J3490; J7120